=== PATIENT | female | born 1985 | race Caucasian/White ===

== ENCOUNTER 2017-05-28 18:38 | Emergency (ER) | payer OTHER ==
--- NOTE | 2017-05-28 20:14 | UC ---
Respiratory Complaint HPI - HPI Summary HPI Summary: 32 YEAR OLD FEMALE PRESENTS WITH COMPLAINS OF SEVERE COUGH. - History of Current Complaint Stated Complaint: COUGH Time Seen by Provider: 05/28/17 20:13 Hx Obtained From: Patient Hx Last Menstrual Period: 09/14/14 Onset/Duration: Sudden Onset Severity Initially: Moderate Severity Currently: Moderate - Allergies/Home Medications Allergies/Adverse Reactions: Allergies Allergy/AdvReac Type Severity Reaction Status Date / Time No Known Allergies Allergy Verified 05/28/17 20:07 Home Medications: Home Medications Cholecalciferol [D 1000] 1,000 unit PO DAILY 05/28/17 [History Confirmed ] Hydroxychloroquine TAB* [Plaquenil TAB*] 100 mg PO BID 05/28/17 [History Confirmed 05/28/17] Ranitidine TAB (NF) [Zantac TAB (NF)] 150 mg PO BID 05/28/17 [History Confirmed 05/28/17] predniSONE TAB* [Deltasone TAB*] 5 mg PO DAILY 05/28/17 [History Confirmed 05/28] PMH/Surg Hx/FS Hx/Imm Hx Previously Healthy: Yes - Surgical History Surgical History: Yes Surgery Procedure, Year, and Place: C-Sections, 2011 2012 - Social History Alcohol Use: "four times a week ... 2-3 drinks" Substance Use Type: None Smoking Status (MU): Never Smoked Tobacco - Immunization History Most Recent Influenza Vaccination: Not the season Review of Systems Constitutional: Negative Skin: Negative Eyes: Negative ENT: Nasal Discharge, Sinus Congestion, Sinus Pain/Tenderness Respiratory: Shortness Of Breath, Cough Cardiovascular: Negative Gastrointestinal: Negative Genitourinary: Negative Motor: Negative Neurovascular: Negative Musculoskeletal: Negative Neurological: Negative Psychological: Negative All Other Systems Reviewed And Are Negative: Yes Physical Exam Triage Information Reviewed: Yes Vital Signs Reviewed: Yes Eye Exam: Normal ENT: Positive: Pharyngeal erythema, Nasal congestion, Nasal drainage Dental Exam: Normal Neck exam: Normal Neck: Positive: 1 Respiratory: Positive: Rhonchi, Wheezing Cardiovascular Exam: Normal Abdominal Exam: Normal Musculoskeletal Exam: Normal Neurological Exam: Normal Psychological Exam: Normal Skin Exam: Normal Respiratory Course/Dx - Differential Dx/Diagnosis Provider Diagnoses: BRONCHITIS Discharge - Discharge Plan Condition: Stable Disposition: HOME Prescriptions: Albuterol HFA INHALER* [Ventolin HFA Inhaler*] 1 puff INH Q6H PRN #1 mdi PRN Reason: Wheezing Azithromyxin BERT (NF) [Z-Bert (Zithromax) 250 mg tabs #6] 2 tab PO .TODAY, THEN 1 DAILY #6 tab Guaifenesin-Codeine [Cheratussin AC] 1 teasp PO Q8H PRN #120 ml MDD 15 ml PRN Reason: Cough Methylprednisolone [Medrol Dosepak 4 MG*] 4 mg PO .SEE BERT INSTRUCTION #21 tab Patient Education Materials: Acute Cough (ED) Referrals: Tara Song MD [Primary Care Provider] -
[2017-05-28 20:15] VITALS: BP 122/82
== END 2017-05-28 20:32 | disposition home or self-care (01) ==
LOC: UCCORT 18:38
DX: J40 Bronchitis, not specified as acute or chronic (principal)
CPT/HCPCS: 99212; G0463

== ENCOUNTER 2017-09-23 17:53 | Emergency (ER) | payer OTHER ==
--- OUTSIDE RECORDS SUMMARY | 2017-09-23 19:05 | XMS REPORT ---
:1985 Author Name sound, Arden Reed Care Team Providers Name Role Phone sound, ultra Unavailable Unavailable PROBLEMS Type Condition ICD9-CM [id number] Onset Condition SNOMED Code Code Code Dates Status Problem Family history of Z80.3 Active 510107020 malignant neoplasm of breast Problem Anal spasm K59.4 Active 34364657 Problem Body mass index Z68.41 Active 233531458 (BMI) 40.0-44.9, adult Problem Left lower R10.32 Active 286283101 quadrant pain Problem Primary N94.4 Active 54600929 dysmenorrhea Problem Dysmenorrhea, N94.6 Active 811871451 unspecified Problem Indeterminate K52.3 Active 664864965 colitis Problem Abnormal uterine N93.9 Active [id number] and vaginal bleeding, unspecified ALLERGIES No Information ENCOUNTERS Encounter Location Date Diagnosis [facility] Sep, [place]BG[place] [id number] [facility] Aug, Abnormal uterine and OBGYN [facility] vaginal bleeding, [place], [place] [id number] unspecified N93.9 [facility] Aug, Other specified abnormal OBGYN [facility] uterine and vaginal [place], [place] [id number] bleeding N93.8 ; Body mass index (BMI) 40.0-44.9, adult Z68.41 and Left lower quadrant pain R10.32 [facility] Aug, Abnormal uterine and OBG[facility] vaginal bleeding, [place], [place] [id number] unspecified N93.9 [facility] Aug, Other specified abnormal OBGYN [facility] uterine and vaginal [place], [place] [id number] bleeding N93.8 ; Body mass index (BMI) 40.0-44.9, adult Z68.41 ; Left lower quadrant pain R10.32 and Indeterminate colitis K52.3 [facility] [address] Mar, OBGYN [place] [id number] [facility] Mar, Abnormal uterine and OBGYN [facility] vaginal bleeding, [place], [place] [id number] unspecified N93.9 ; Primary dysmenorrhea N94.4 and Anal spasm K59.4 [facility] Nov, [place]BGYN [place] [id number] [facility] Nov, Abnormal uterine and OBGYN [facility] vaginal bleeding, [place], [place] [id number] unspecified N93.9 ; Primary dysmenorrhea N94.4 and Anal spasm K59.4 [facility] October, [place]BGYN [place] [id number] [facility] October, [place]BGYN [place] [id number] [facility] Aug, [place]BG[place] [id number] [facility] Aug, [facility]94.4 [facility] ; Excessive and frequent [place], [place] [id number] menstruation with regular cycle N92.0 ; Irregular menstruation, unspecified N92.6 and Anal spasm K59.4 [facility] Aug, [place]BGYN [place] [id number] [facility] Aug, [place]BGYN [place] [id number] [facility] Jul, [place]BGYN [place] [id number] [facility] [address] [facility], Jul, [place] [id number] [facility] Jul, Excessive and frequent [facility] menstruation with regular [place], [place] [id number] cycle N92.0 [facility] Jul, [place] [id number] [facility] [address] [facility] Jul, Primary dysmenorrhea N94.[address] [place], ; Excessive and frequent [place] [id number] menstruation with regular cycle N92.0 ; Irregular menstruation, unspecified N92.6 and Anal spasm K59.4 [facility] Jul, [place]BG[place] [id number] [facility] Jul, [place] [id number] [facility] Jul, [place]BG[place] [id number] [facility] Jul, Excessive and frequent [facility] menstruation with regular [place] [id number] cycle N92.0 and Acute vaginitis N76.0 [facility] Jul, Other specified abnormal [facility] [place] [place] [id number] bleeding N93.8 and Dysmenorrhea, unspecified N94.6 [facility] Jul, Other specified [facility] [place] [place] [id number] bleeding N93.8 [facility] Jul, [place]BG[place] [id number] [facility] Jul, Other specified abnormal [facility] [place] [id number] bleeding N93.8 ; Anal spasm K59.4 ; Dysmenorrhea, unspecified N94.6 ; Dyspareunia N94.1 and Generalized abdominal pain R10.84 [facility] Jul, [place], [place] [id number] [facility] May, [place], [place] [id number] [facility] May, [place], [place] [id number] [facility] May, Other specified conditions [facility] associated with female [place], [place] [id number] genital organs and menstrual cycle N94.89 ; Gastrointestinal hemorrhage, unspecified K92.2 ; Generalized abdominal pain R10.84 ; Family history of malignant neoplasm of breast Z80.3 and Anal spasm K59.4 [facility] May, [place], [place] [id number] [facility] [address] [facility], May, [facility] [id number] [facility] May, [place] [id number] [facility] May, [place] [id number] [facility] May, [place] [id number] [facility] May, [place] [id number] [facility] May, [place] [id number] [facility] May, [place] [id number] [facility] May, PELVIC PAIN 625.9 and [facility] Levator syndrome 564.6 [place], [place] [id number] IMMUNIZATIONS No Known Immunizations SOCIAL HISTORY Never Assessed REASON FOR REFERRAL FUNCTIONAL STATUS PLAN OF CARE VITAL SIGNS MEDICATIONS Unknown Medications PROCEDURES Procedure Date Ordered Result Body Site URINE TEST September 18, 2017 CATHETER FOR HYSTEROGRAPHY September 18, 2017 ECHO EXAM, UTERUS September 18, 2017 TRANSVAGINAL US, NON-OB September 18, 2017 3D rendering requiring imaging post processing September 18, 2017 RESULTS Name Result Date Reference Range URINE TEST Hysterosonogram REASON FOR VISIT Hystero MEDICAL (GENERAL) HISTORY Type Description Date Medical History possible GERD Medical History Lupus Medical History Anxiety Medical History BRCA negative Surgical History c- section x2 Surgical History laparoscopy - endometriosis? 02/12 Surgical History removed milk ducts from RT breast 07/2014 Surgical History Hysteroscopy/D&C: EM polyp; SM fibroid 07-27-15 Hospitalization History Angioedema from Alprazolam (Xanax) 07-29-15
--- OUTSIDE RECORDS SUMMARY | 2017-09-23 19:05 | XMS REPORT ---
:1985 Author Organization [facility] Address [address] [place] [address] Care Team Providers Name Role Phone Arielle Curran Unavailable Unavailable PROBLEMS Type Condition ICD9-CM [id number] Onset Condition SNOMED Code Code Code Dates Status Problem Family history of Z80.3 Active 035502327 malignant neoplasm of breast Problem Anal spasm K59.4 Active 17257255 Problem Body mass index Z68.41 Active 244951900 (BMI) 40.0-44.9, adult Problem Left lower R10.32 Active 349595932 quadrant pain Problem Primary N94.4 Active 16322595 dysmenorrhea Problem Dysmenorrhea, N94.6 Active 748523843 unspecified Problem Indeterminate K52.3 Active 040745425 colitis Problem Abnormal uterine N93.9 Active 32492312479910 and vaginal bleeding, unspecified ALLERGIES Substance Reaction Event Type Date Status alprazolam angioedema Drug Allergy Aug, Active ENCOUNTERS Encounter Location Date Diagnosis [facility] Sep, O[place]YN [place], [place] [id number] [facility] Aug, Abnormal uterine and OBGYN [facility] vaginal bleeding, [place], [place] [id number] unspecified N93.9 [facility] 103 Aug, Other specified abnormal OBGYN [facility] uterine and vaginal [place], [place] [id number] bleeding N93.8 ; Body mass index (BMI) 40.0-44.9, adult Z68.41 and Left lower quadrant pain R10.32 [facility] Aug, Abnormal uterine and OBGYN [facility] vaginal bleeding, [place], [place] [id number] unspecified N93.9 [facility] Aug, Other specified abnormal OBGYN [facility] uterine and vaginal [place], [place] [id number] bleeding N93.8 ; Body mass index (BMI) 40.0-44.9, adult Z68.41 ; Left lower quadrant pain R10.32 and Indeterminate colitis K52.3 [facility] Mar, [place], [place] [id number] [facility] Mar, Abnormal uterine and [facility] vaginal bleeding, [place], [place] [id number] unspecified N93.9 ; Primary dysmenorrhea N94.4 and Anal spasm K59.4 [facility] Nov, [place] [id number] [facility] Nov, Abnormal uterine and [facility] vaginal bleeding, [place], [place] [id number] unspecified N93.9 ; Primary dysmenorrhea N94.4 and Anal spasm K59.4 [facility] [address] October, [place] [id number] [facility] October, [place] [id number] [facility] Aug, [place] [id number] [facility] Aug, Primary dysmenorrhea N94.4 [facility] ; Excessive and frequent [place], [place] [id number] menstruation with regular cycle N92.0 ; Irregular menstruation, unspecified N92.6 and Anal spasm K59.4 [facility] Aug, [place], [place] [id number] [facility] Aug, [place] [id number] [facility] Jul, [place], [place] [id number] [facility] [address] [place], Jul, [place] [id number] [facility] Jul, [facility]cessive and [facility]ation with regular [place] [address] cycle N92.0 [facility] Jul, [place] [id number] [facility] Jul, Primary dysmenorrhea N94.[address] [place], ; Excessive and frequent [place] [id number] menstruation with regular cycle N92.0 ; Irregular menstruation, unspecified N92.6 and Anal spasm K59.4 [facility] Jul, [place] [id number] [facility] Jul, [place] [id number] [facility] Jul, [place] [id number] [facility] Jul, Excessive and frequent [facility] menstruation with regular [place], [place] [id number] cycle N92.0 and Acute vaginitis N76.0 [facility] Jul, Other specified abnormal OBGYN [facility] uterine and vaginal [place], [place] [id number] bleeding N93.8 and Dysmenorrhea, unspecified N94.6 [facility] Jul, Other specified abnormal [facility] and vaginal [place] [id number] bleeding N93.8 [facility] Jul, [place] [id number] [facility] Jul, Other specified abnormal [facility] and vaginal [place] [id number] bleeding N93.8 ; Anal spasm K59.4 ; Dysmenorrhea, unspecified N94.6 ; Dyspareunia N94.1 and Generalized abdominal pain R10.84 [facility] Jul, [place] [id number] [facility] [address] May, [place] [id number] [facility] May, [place] [id number] [facility] May, Other specified conditions [facility] associated with female [place] [id number] genital organs and menstrual cycle N94.89 ; Gastrointestinal hemorrhage, unspecified K92.2 ; Generalized abdominal pain R10.84 ; Family history of malignant neoplasm of breast Z80.3 and Anal spasm K59.4 [facility] May, [place] [id number] [facility] [address] [place], May, [facility] [id number] [facility] [address] May, [place] [id number] [facility] 103 May[place] [id number] [facility] [address] May, [place] [id number] [facility] 103 May[place] [id number] [facility] [address] May, [place] [id number] [facility] [address] May, [place] [id number] [facility] May, PELVIC PAIN 625.9 and [facility] Levator syndrome 564.6 [place], [place] [id number] IMMUNIZATIONS No Known Immunizations SOCIAL HISTORY Never Assessed REASON FOR REFERRAL FUNCTIONAL STATUS PLAN OF CARE Activity Details Follow Up As scheduled Reason: VITAL SIGNS MEDICATIONS Medication Instructions Dosage Frequency Start Date End Date Duration Status Cytotec 200 mcg orally 1 tab at 1 tab(s) Active dinner night before procedure, 1 tab at bedtime night before procedure, 1 tab at 6 AM day of procedure PROCEDURES No Known procedures RESULTS No Results REASON FOR VISIT Hystero MEDICAL (GENERAL) HISTORY [...]
--- OUTSIDE RECORDS SUMMARY | 2017-09-23 19:05 | XMS REPORT ---
:1985 Author Organization [facility] Address [address] [place] [address] Care Team Providers Name Role Phone Megan Weaver Unavailable Unavailable PROBLEMS Type Condition ICD9-CM [id number] Onset Condition SNOMED Code Code Code Dates Status Problem Family history of Z80.3 Active 512933451 malignant neoplasm of breast Problem Anal spasm K59.4 Active 36715656 Problem Body mass index Z68.41 Active 903229275 (BMI) 40.0-44.9, adult Problem Left lower R10.32 Active 578089987 quadrant pain Problem Primary N94.4 Active 64862163 dysmenorrhea Problem Dysmenorrhea, N94.6 Active 582706899 unspecified Problem Indeterminate K52.3 Active 107085191 colitis Problem Abnormal uterine N93.9 Active [id number] and vaginal bleeding, unspecified ALLERGIES Substance Reaction Event Type Date Status alprazolam angioedema Drug Allergy Aug, Active ENCOUNTERS Encounter Location Date Diagnosis [facility] [address] Sep, [place]YN [place] [id number] [facility] [address] Aug, Abnormal uterine and OBGYN [facility] vaginal bleeding, [place], [place] [id number] unspecified N93.9 [facility] 103 Aug, Other specified abnormal OBGYN [facility] uterine and vaginal [place], [place] [id number] bleeding N93.8 ; Body mass index (BMI) 40.0-44.9, adult Z68.41 and Left lower quadrant pain R10.32 [facility] 103 Aug, Abnormal uterine and OBGYN [facility] vaginal bleeding, [place], [place] [id number] unspecified N93.9 [facility] 103 Aug, Other specified abnormal OBGYN [facility] uterine and vaginal [place], [place] [id number] bleeding N93.8 ; Body mass index (BMI) 40.0-44.9, adult Z68.41 ; Left lower quadrant pain R10.32 and Indeterminate colitis K52.3 [facility] [address] Mar, [place], [place] [id number] [facility] 103 Mar, Abnormal uterine and [facility] vaginal bleeding, [place], [place] [id number] unspecified N93.9 ; Primary dysmenorrhea N94.4 and Anal spasm K59.4 [facility] 103 Nov, [place], [place] [id number] [facility] 103 Nov, Abnormal uterine and [facility] vaginal bleeding, [place], [place] [id number] unspecified N93.9 ; Primary dysmenorrhea N94.4 and Anal spasm K59.4 [facility] 103 October, [place], [place] [id number] [facility] 103 October, [place], [place] [id number] [facility] 103 Aug, [place], [place] [id number] [facility] 103 Aug, Primary dysmenorrhea N94.4 [facility] ; Excessive and frequent [place], [place] [id number] menstruation with regular cycle N92.0 ; Irregular menstruation, unspecified N92.6 and Anal spasm K59.4 [facility] 103 Aug, [place], [place] [id number] [facility] 103 Aug, [place], [place] [id number] [facility] 103 Jul, [place], [place] [id number] [facility] [address] [place], [facility] [place] [id number] [facility] 103 Jul, [facility] with regular [place], [place] [id number] cycle N92.0 [facility] 103 Jul, [place] [id number] [facility] [address] [facility], Primary dysmenorrhea N94.4 [facility] [address] [place], ; Excessive and frequent [place] [id number] menstruation with regular cycle N92.0 ; Irregular menstruation, unspecified N92.6 and Anal spasm K59.4 [facility] 103 Jul, [place] [id number] [facility] 103 Jul, [place] [id number] [facility] 103 Jul, [place] [id number] [facility] 103 Jul, [facility] and [facility]ation with regular [place], [place] [id number] cycle N92.0 and Acute vaginitis N76.0 [facility] 103 Jul, Other specified abnormal OBGYN [facility] uterine and vaginal [place], [place] [id number] bleeding N93.8 and Dysmenorrhea, unspecified N94.6 [facility] 103 Jul, Other specified abnormal [facility] uterine and [place] [id number] bleeding N93.8 [facility] 103 Jul, [place] [id number] [facility] 103 Jul, Other specified [facility] and vaginal [place] [id number] bleeding N93.8 ; Anal spasm K59.4 ; Dysmenorrhea, unspecified N94.6 ; Dyspareunia N94.1 and Generalized abdominal pain R10.84 [facility] 103 Jul, [place] [id number] [facility] 103 May, [place] [id number] [facility] 103 May, [place] [id number] [facility] 103 May, Other specified conditions [facility] associated with female [place], [place] [id number] genital organs and menstrual cycle N94.89 ; Gastrointestinal hemorrhage, unspecified K92.2 ; Generalized abdominal pain R10.84 ; Family history of malignant neoplasm of breast Z80.3 and Anal spasm K59.4 [facility] [address] May, [place] [id number] [facility] [address] [place], May, Medical [facility] [id number] [facility] [address] May, [place] [id number] [facility] [address] May, [place] [id number] [facility] [address] May, [place] [id number] [facility] 103 May, [place] [id number] [facility] 103 May, [place] [id number] [facility] 103 May, [place] [id number] [facility] 103 May, PELVIC PAIN 625.9 and [facility] Levator syndrome 564.6 [place], [place] [id number] IMMUNIZATIONS No Known Immunizations SOCIAL HISTORY Never Assessed REASON FOR REFERRAL FUNCTIONAL STATUS PLAN OF CARE Activity Details Follow Up As scheduled Reason: Pending Test endometrial biopsy VITAL SIGNS Height 64 in 2017-09-19 Weight 263 lbs 2017-09-19 BMI 45.14 kg/m2 2017-09-19 Blood pressure systolic 128 mm Hg 2017-09-19 Blood pressure diastolic 70 mm Hg 2017-09-19 MEDICATIONS Medication Instructions Dosage Frequency Start End Duration Status Date Date Vitamin D2 50,000 orally q week 1 cap(s) Active intl units prednisone 5 mg orally once a 1 tab(s) 24h Active day Cytotec 200 mcg orally 1 tab at 1 tab(s) Active dinner night before procedure, 1 tab at bedtime night before procedure, 1 tab at 6 AM day of procedure alprazolam 0.5 mg orally 3 times 1 tab(s) 8h Active a day Hydrochloroquinine 1 atb 12h Active 200 mg ranitidine 150 mg orally 2 times 1 cap(s) 12h Active a day PROCEDURES Procedure Date Ordered Result Body Site BIOPSY OF UTERUS LINING September 19, 2017 RESULTS No Results REASON FOR VISIT EMB MEDICAL (GENERAL) HISTORY Type Description Date Medical History possible GERD Medical History Lupus Medical History Anxiety Medical History BRCA negative Surgical History c- section x2 Surgical History laparoscopy - endometriosis? 02/12 Surgical History removed milk ducts from RT breast 07/2014 Surgical History Hysteroscopy/D&C: EM polyp; SM fibroid 07-27-15 Hospitalization History Angioedema from Alprazolam (Xanax) 07-29-15
[2017-09-23 19:14] VITALS: BP 115/65
--- NOTE | 2017-09-23 19:45 | UC ---
UC General HPI - HPI Summary HPI Summary: pt c/o a sore throat, headache and R ear pain. stomach feels off as well. no fever, v/d. son tested + for strep throat and is currently being tx. pt has Lupus and is on steroids. onset yesterday. - History of Current Complaint Hx Obtained From: Patient Hx Last Menstrual Period: CURRENT Onset/Duration: Gradual Onset Timing: Constant Pain Intensity: 4 Associated Signs & Symptoms: Positive: Headache <Justyna Ruiz - Last Filed: 09/23/17 19:40> <Fabby Mccray - Last Filed: 09/23/17 20:58> - History of Current Complaint Chief Complaint: UCGeneralIllness Stated Complaint: SORE THROAT, HEADACHE Time Seen by Provider: 09/23/17 19:29 - Allergy/Home Medications Allergies/Adverse Reactions: Allergies Allergy/AdvReac Type Severity Reaction Status Date / Time No Known Allergies Allergy Verified 09/23/17 19:06 PMH/Surg Hx/FS Hx/Imm Hx - Additional Past Medical History Additional PMH: Lupus GI/ History: Gastroesophageal Reflux - Surgical History Surgical History: Yes Surgery Procedure, Year, and Place: C-Sections, 2011 2012 - Social History Occupation: Employed Full-time Lives: With Family Alcohol Use: Occasionally Substance Use Type: None Smoking Status (MU): Never Smoked Tobacco - Immunization History Most Recent Influenza Vaccination: Not the season Vaccination Up to Date: Yes <Justyna Ruiz - Last Filed: 09/23/17 19:40> Review of Systems ENT: Sore Throat, Ear Ache Gastrointestinal: Nausea Neurological: Headache Is Patient Immunocompromised?: Yes All Other Systems Reviewed And Are Negative: Yes <Justyna Ruiz - Last Filed: 09/23/17 19:40> Physical Exam Triage Information Reviewed: Yes Appearance: Well-Appearing Vital Signs: Initial Vital Signs Temp 96.2 F 09/23/17 19:08 Pulse 84 09/23/17 19:08 Resp 16 09/23/17 19:08 BP 115/65 09/23/17 19:08 Pulse Ox 100 09/23/17 19:08 Vital Signs Reviewed: Yes Eye Exam: Normal ENT: Positive: Pharyngeal erythema, TMs normal, Uvula midline. Negative: Nasal congestion, Nasal drainage, Tonsillar swelling, Tonsillar exudate, Trismus, Muffled voice, Hoarse voice Neck: Positive: Supple, Nontender, Enlarged Nodes @ - mild peritonsilar Respiratory: Positive: Lungs clear, Normal breath sounds Cardiovascular: Positive: RRR, No Murmur, Pulses Normal Abdomen Description: Positive: Nontender, No Organomegaly, Soft Bowel Sounds: Positive: Present Musculoskeletal: Positive: ROM Intact Neurological: Positive: Alert Psychological: Positive: Age Appropriate Behavior Skin Exam: Normal <Justyna Ruiz - Last Filed: 09/23/17 19:40> Vital Signs: Initial Vital Signs Temp 96.2 F 09/23/17 19:08 Pulse 84 09/23/17 19:08 Resp 16 09/23/17 19:08 BP 115/65 09/23/17 19:08 Pulse Ox 100 09/23/17 19:08 <Fabby Mccray - Last Filed: 09/23/17 20:58> Diagnostics - Laboratory Diagnostic Studies Completed/Ordered: rapid strep=neg <Justyna uRiz - Last Filed: 09/23/17 19:40> Course/Dx - Course Course Of Treatment: rapid strep=neg; however, pharyngitis on exam, steroid dependent and son has strep thus will tx presumptively. - Differential Dx - Multi-Symptom Provider Diagnoses: Pharyngitis <Justyna Ruiz - Last Filed: 09/23/17 19:40> Discharge - Sign-Out/Discharge Documenting (check all that apply): Discharge - Billing Disposition and Condition Condition: STABLE Disposition: HOME <Justyna Ruiz - Last Filed: 09/23/17 19:40> - Billing Disposition and Condition Condition: STABLE Disposition: HOME <Fabby Mccray - Last Filed: 09/23/17 20:58> - Discharge Plan Condition: Stable Disposition: HOME Prescriptions: Penicillin VK 500 MG TAB(NF) [Penicillin VK 500 mg Tab] 500 mg PO BID 10 Days # 20 tab Patient Education Materials: Pharyngitis (ED) Referrals: Swetha Benitez MD [Primary Care Provider] - 5 Days Attestation Statement User Type: Provider - I was available for consult. This patient was seen by the advanced practice provider. The patient was not presented to, seen by, or examined by me.-Ljj <Fabby Mccray - Last Filed: 09/23/17 20:58>
== END 2017-09-23 19:59 | disposition home or self-care (01) ==
LOC: UCCORT 17:53
DX: J02.9 Acute pharyngitis, unspecified (principal); Z20.89 Contact with and (suspected) exposure to other communicable diseases
CPT/HCPCS: 87651; 99212; G0463

== ENCOUNTER 2017-11-16 09:16 | Emergency (ER) | payer OTHER ==
--- OUTSIDE RECORDS SUMMARY | 2017-11-16 09:28 | XMS REPORT ---
:1985 External Reference #:[id number] Author Organization [facility] Address [address], [address] [place] [address] Phone [phone] Care Team Providers Name Role Phone Tara Song MD Care Team Information Safety Investigator Unavailable Tara Song MD Primary Care Physician Unavailable Payers Type Date Identification Numbers Payment Provider Subscriber Commercial Policy Number: [id number] [facility] Rosie Villatoro PayID: [id number] [address] [place] [address] Problems Description No Information Family History Date Family Member(s) Problem(s) Comments Father Heart Disease Father Prostate Cancer Mother Heart Disease Children 2 Siblings 2 Social History Type Date Description 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 Alprazolam 0000 Active Tablets 0.5mg as Dill, Swetha, /0000 needed Hydroxychloroquine Active Tablets 200mg twice a Johns, Sulfate / day Emeka ESCALONA Prednisone 00 Active Tablets 5mg once Johns, /0000 daily Emeka ESCALONA Vitamin D2 Active Tablets 2000Unit 1 by Unknown /0000 mouth every day Sulfamethoxazole/Tri 06/22 Hx Tablets 800-160mg 14tab 1 by N39.0 Erickson methoprim s mouth H. - twice a Moheimani, 10/17 day M.D. Naproxen Hx Tablets 500mg 1 by Unknown /0000 mouth - twice a with food Miralax Hx Packet 3350NF 17g by Unknown /0000 mouth - twice a 10/17 day needed constip ation. Vital Signs Date Vital Result Comment 10/17/2017 BP Systolic 128 mmHg BP Diastolic 88 mmHg Height 64.50 inches 5'4.50" Weight 236.00 lb BMI (Body Mass Index) 39.9 kg/m2 BSA (Body Surface Area) 2.11 m2 Ten Sleep body weight in kilograms 56 06/09/2015 BP Systolic Sitting Left Arm 100 mmHg BP Diastolic Sitting Left Arm 65 mmHg Heart Rate 95 /min Height 64.50 inches 5'4.50" Weight 233.00 lb BMI (Body Mass Index) 39.4 kg/m2 BSA (Body Surface Area) 2.10 m2 Results Test Date Test Result H/L Range Note Laboratory test finding 07/12/2015 Gastric Biopsy/Polyp See Note 1 Xray 07/11/2015 GI Endscopic Ultrasound neg Xray 07/11/2015 CT, Pelvis, W/ & W/O - Contrast MRI, Pelvis, W/ & W/O Contrast - CBS W/Automated Diff 07/10/2015 White Blood Count 6.9 K/uL 3.1-10.7 Red Blood Count 4.71 M/uL 3.90-5.40 Hemoglobin 14.8 gm/dL 11.6-15.8 Hematocrit 44.2 % 36.0-46.1 Mean Cell Volume 93.8 fl 80.9-99.0 Mean Corpuscular HGB 31.4 pg 25.9-32.7 Mean Corpuscular HGB Conc 33.5 g/dL 30.8-34.3 Platelet Count 262 K/uL 155-360 Red Cell Distri Width SD 43.2 fl 3-47 Red Cell Distri Width %CV 12.9 % 11.7-14.4 Mean Platelet Volume 10.0 fL 8.9-12.4 Neut% 60.8 % 40.4-72.8 Lymph % 29.8 % 17.0-46.1 Baxter % 8.4 % 4.3-13.2 Eo% 0.4 % 0.0-6.6 Bas% 0.6 % 0.0-1.1 Neut# 4.20 K/uL 1.8-7.0 Lymph # 2.06 K/uL 1.8-7.0 Baxter # 0.58 K/uL 0.3-0.9 Eos # 0.03 K/uL 0.0-0.5 Baso # 0.04 K/uL 0.0-0.1 Urine Screen 07/10/2015 Urine Color YELLOW Yellow Urine Clarity CLEAR Clear Urine Glucose - Dipstick NEGATIVE mg/dL Negative Urine Bilirubin - Dipstick NEGATIVE Negative Urine Ketone NEGATIVE mg/dL Negative Urine Specific Callaway 1.015 1.010-1.030 Urine Blood NEGATIVE Negative Urine PH 5.5 Low 6.5-7.5 Urine Protein - Dipstick NEGATIVE mg/dL Negative Urine Urobilinogen - Dipstick 0.2 E.U./dL 0.2-1.0 Urine Nitrite - Dipstick NEGATIVE Negative Urine Leuk Esterase NEGATIVE Negative Comprehensive Metabolic Panel 07/10/2015 Glucose 97 mg/dL 74-106 BUN 14 mg/dL 7-18 Creatinine 0.9 mg/dL 0.6-1.3 Glom Filtration Rate, Estimate >60 mL/min >60 If >60 mL/min >60 2 BUN/Creat 15.5 ratio Sodium 139 mmol/L 136-145 Potassium 4.2 mmol/L 3.5-5.1 Chloride 106 mmol/L 98-107 Carbon Dioxide 26 mmol/L 21-32 Anion Gap 7 mEq/L Low 8-16 Calcium 8.9 mg/dL 8.5-10.1 Total Protein 8.7 g/dL High 6.4-8.2 Albumin 4.1 g/dL 3.4-5.0 Globulin 4.6 g/dL High 1.9-4.3 Alb/Glob 0.9 ratio Bilirubin,Total 0.3 mg/dL 0.2-1.0 Sgot/Ast 21 U/L 15-37 SGPT/Alt 37 U/L 12-78 Alkaline Phosphatase 89 U/L 45-117 Laboratory test finding 07/10/2015 HCG,Serum (Qualitative) NEGATIVE ( Negative) CBC W/Automated Diff 07/10/2015 White Blood Count 6.9 K/uL 3.1-10.7 Red Blood Count 4.41 M/uL 3.90-5.40 Hemoglobin 13.8 gm/dL 11.6-15.8 Hematocrit 41.4 % 36.0-46.1 Mean Cell Volume 93.9 fl 80.9-99.0 Mean Corpuscular HGB 31.3 pg 25.9-32.7 Mean Corpuscular HGB Conc 33.3 g/dL 30.8-34.3 Platelet Count 287 K/uL 155-360 Red Cell Distri Width SD 43.0 fl 3-47 Red Cell Distri Width %CV 12.9 % 11.7-14.4 Mean Platelet Volume 9.8 fL 8.9-12.4 Neut% 71.7 % 40.4-72.8 Lymph % 20.6 % 17.0-46.1 Baxter % 6.5 % 4.3-13.2 Eo% 0.9 % 0.0-6.6 Bas% 0.3 % 0.0-1.1 Neut# 4.94 K/uL 1.8-7.0 Lymph # 1.42 K/uL Low 1.8-7.0 Baxter # 0.45 K/uL 0.3-0.9 Eos # 0.06 K/uL 0.0-0.5 Baso # 0.02 K/uL 0.0-0.1 Protime 07/10/2015 Protime 12.6 seconds 12.0-14.4 Inr 0.9 0.9-1.1 3 Laboratory test finding 07/10/2015 Act Partial Thrombo Time 30.2 seconds 23.4-35.0 4 Laboratory test finding 07/10/2015 Prothrombin Time 12.6 12.0-14.4 Laboratory test finding 07/08/2015 Free Thyroxine 1.00 0.76-1.46 Prolactin 8.3 Thyroid Stimulating Hormone (TSH) 1.92 0.36-3.74 Laboratory test finding 07/05/2015 Urine Amorphous Sediment Small Negative CBC W/Automated Diff 06/23/2015 White Blood Count 7.2 K/uL 3.1-10.7 Red Blood Count 4.16 M/uL 3.90-5.40 Hemoglobin 13.2 gm/dL 11.6-15.8 Hematocrit 39.9 % 36.0-46.1 Mean Cell Volume 95.9 fl 80.9-99.0 Mean Corpuscular HGB 31.7 pg 25.9-32.7 Mean Corpuscular HGB Conc 33.1 g/dL 30.8-34.3 Platelet Count 237 K/uL 155-360 Red Cell Distri Width SD 43.0 fl 3-47 Red Cell Distri Width %CV 12.7 % 11.7-14.4 Mean Platelet Volume 10.1 fL 8.9-12.4 Neut% 59.9 % 40.4-72.8 Lymph % 30.7 % 17.0-46.1 Baxter % 7.8 % 4.3-13.2 Eo% 1.3 % 0.0-6.6 Bas% 0.3 % 0.0-1.1 Neut# 4.30 K/uL 1.0-7.0 Lymph # 2.20 K/uL 1.8-7.0 Baxter # 0.56 K/uL 0.3-0.9 Eos # 0.09 K/uL 0.0-0.5 Baso # 0.02 K/uL 0.0-0.1 Laboratory test finding 06/23/2015 Basophils # (Auto) 0.02 0.0-0.1 Basophils (%) (Auto) 0.3 0.0-1.1 Eosinophils # (Auto) 0.09 0.0-0.5 Eosinophils (%) (Auto) 1.3 0.0-6.6 Lymphocytes # (Auto) 2.20 1.8-7.0 Lymphocytes (%) (Auto) 30.7 17.0-46.1 Monocytes # (Auto) 0.56 0.3-0.9 Monocytes (%) (Auto) 7.8 4.3-13.2 Neutrophils # (Auto) 4.30 1.0-7.0 Neutrophils (%) (Auto) 59.9 40.4-72.8 RDW Coefficient of Variation 12.7 11.7-14.4 Red Cell Distribution Width 43.0 3-47 Urinalysis With Microscopic 06/23/2015 Urine Color YELLOW Yellow Urine Clarity SL CLOUDY Clear Urine Glucose - Dipstick NEGATIVE mg/dL Negative Urine Bilirubin - Dipstick NEGATIVE Negative Urine Ketone NEGATIVE mg/dL Negative Urine Specific Callaway 1.010 1.010-1.030 Urine Blood MODERATE High Negative Urine PH 6.0 Low 6.5-7.5 Urine Protein - Dipstick NEGATIVE mg/dL Negative Urine Urobilinogen - Dipstick 0.2 E.U./dL 0.2-1.0 Urine Nitrite - Dipstick NEGATIVE Negative Urine Leuk Esterase LARGE High Negative Urine RBC 2-5 rbc/hpf 0-2 Urine WBC 30-50 wbc/hpf High 0-7 Urine Epithelial Cells VERY FEW NONESEEN/lpf Urine Bacteria FEW NONESEEN Laboratory test finding 06/23/2015 Ua RFX Micro + Culture II See Note 5 Urine Culture See Note 6 Laboratory test finding 06/23/2015 Urine Bilirubin Negative Negative Urine Glucose (Ua) Negative Negative Urine Ketones Negative Negative Urine Leukocyte Esterase Large High Negative Urine Nitrite Negative Negative Urine Protein Negative Negative Urine Urobilinogen 0.2 0.2-1.0 Laboratory test finding 06/22/2015 Sodium Level 139 136-145 CBC W/Automated Diff 06/22/2015 White Blood Count 7.7 K/uL 3.1-10.7 Red Blood Count 4.45 M/uL 3.90-5.40 Hemoglobin 13.6 gm/dL 11.6-15.8 Hematocrit 41.4 % 36.0-46.1 Mean Cell Volume 93.0 fl 80.9-99.0 Mean Corpuscular HGB 30.6 pg 25.9-32.7 Mean Corpuscular HGB Conc 32.9 g/dL 30.8-34.3 Platelet Count 266 K/uL 155-360 Red Cell Distri Width SD 41.3 fl 3-47 Red Cell Distri Width %CV 12.5 % 11.7-14.4 Mean Platelet Volume 10.1 fL 8.9-12.4 Neut% 64.7 % 40.4-72.8 Lymph % 25.7 % 17.0-46.1 Baxter % 8.4 % 4.3-13.2 Eo% 0.9 % 0.0-6.6 Bas% 0.3 % 0.0-1.1 Neut# 4.99 K/uL 1.0-7.0 Lymph # 1.98 K/uL 1.8-7.0 Baxter # 0.65 K/uL 0.3-0.9 Eos # 0.07 K/uL 0.0-0.5 Baso # 0.02 K/uL 0.0-0.1 Laboratory test finding 06/22/2015 Lipase 126 U/L 73-393 HCG,Serum (Qualitative) NEGATIVE (Negative) Comprehensive Metabolic Panel 06/22/2015 Glucose 105 mg/dL 74-106 BUN 15 mg/dL 7-18 Creatinine 0.9 mg/dL 0.6-1.3 Glom Filtration Rate, Estimate >60 mL/min >60 If >60 mL/min >60 7 BUN/Creat 16.6 ratio Sodium 139 mmol/L 136-145 Potassium 3.7 mmol/L 3.5-5.1 Chloride 106 mmol/L 98-107 Carbon Dioxide 27 mmol/L 21-32 Anion Gap 6 mEq/L Low 8-16 Calcium 9.1 mg/dL 8.5-10.1 Total Protein 8.2 g/dL 6.4-8.2 Albumin 3.9 g/dL 3.4-5.0 Globulin 4.3 g/dL 1.9-4.3 Alb/Glob 0.9 ratio Bilirubin,Total 0.3 mg/dL 0.2-1.0 Sgot/Ast 48 U/L High 15-37 SGPT/Alt 80 U/L High 12-78 Alkaline Phosphatase 80 U/L 45-117 Laboratory test finding 06/14/2015 Urine HCG (Qualitative) NEGATIVE Negative 8 Laboratory test finding 06/14/2015 Polyp Colon And/Or Rectum See Note 9 CBC With Auto Diff 05/20/2015 Abmon 0.4 K/uL 0.1-1.0 10 Abs Basophils 0.0 K/uL 0.0-0.3 10 Abs Eosinophils 0.1 K/uL 0.0-0.5 10 Abs Lymphocytes 1.7 K/uL 0.8-5.5 10 Abs Neutrophils 3.6 K/uL 2.1-8.0 10 Basophil 0.1 % 0.0-4.0 10 Eosinophil 0.9 % 0.0-5.0 10 Hematocrit 40.3 % 36.0-47.0 10 Hemoglobin 13.3 gm/dL 12.0-16.0 10 Lymphocyte 29.0 % 16.0-52.0 10 MCH 30.7 pg 27.0-32.0 10 MCHC 33.1 g/dL 32.0-36.0 10 MCV 92.9 fL 80.0-97.0 10 Monocyte 7.7 % 2.0-10.0 10 Neutrophil 62.3 % 35.0-75.0 10 PLT Count 262 K/ul 140-400 10 RBC 4.34 M/uL 4.00-5.40 10 RDW 12.5 % 11.5-14.5 10 WBC 5.7 K/uL 4.1-11.0 10 Laboratory test finding 05/20/2015 A/G Ratio 1.3 Ratio 1.0-2.2 10 Mandy Egfr >60 >60 10 Albumin 4.4 g/dL 3.6-4.9 10 Alkaline Phosphatase 72 U/L 24-140 10 Alt 16 U/L 3-42 10 Vicki Screen Neg Neg 10 Anion Gap 12 mmol/L 6-14 10 Ast 17 U/L 8-42 10 BUN 14 mg/dL 6-26 10 CRP (C-Reactive) 0.32 mg/dL 0.00-0.75 10 Calcium 9.4 mg/dL 8.5-10.2 10 Carbon Dioxide 26 mmol/L 24-34 10 Chloride 102 mmol/L 97-109 10 Creatinine 0.8 mg/dL 0.5-1.4 10 Esr 13 mm/hr 0-20 10 Globulin 3.4 g/dL 2.0-3.5 10 Glucose 82 mg/dL 70-105 10 Non Mandy Egfr >60 >60 10, 11 Potassium 4.1 mmol/L 3.5-5.2 10 Rheumatoid Factor <10.0 Iu/ml 0.0-10.0 10 Sodium 136 mmol/L 134-142 10 Total Bilirubin 0.8 mg/dL 0.1-1.3 10 Total Protein 7.8 g/dL 6.0-8.0 10 1 OPERATION/PROCEDURE EGD DIAGNOSIS: PART 1: "SMALL BOWEL, DUODENUM, BIOPSY": - SMALL BOWEL MUCOSA WITH NORMAL VILLOUS ARCHITECTURE AND NO SIGNIFICANT PATHOLOGIC ABNORMALITY. - NO INFECTIOUS AGENTS OR PATHOLOGIC CHANGES IDENTIFIED. PART 2: "STOMACH, BIOPSIES": - GASTRIC ANTRAL MUCOSA WITH NO SIGNIFICANT PATHOLOGIC ABNORMALITY. - GASTRIC FUNDIC GLAND MUCOSA WITH FOCAL CHRONIC INFLAMMATION AND LYMPHOID AGGREGATE. - NO ACTIVE GASTRITIS OR HELICOBACTOR PYLORI-LIKE ORGANISMS ARE IDENTIFIED. DS/clf 1004 GROSS The specimen is received in formalin in two properly labeled containers with the patient's name and accession number. Part one is designated, "DUODENAL BIOPSIES". The specimen consists of multiple pieces of mullins, soft rubbery tissue with an aggregate measurement of 0.7 x 0.6 x 0.2 cm. Submitted entirely, one cassette. Part two is designated, "STOMACH BIOPSIES". The specimen consists of multiple pieces of mullins, soft rubbery tissue with an aggregate measurement of 0.6 x 0.4 x 0.2 cm. Submitted entirely, one cassette. CC/clf PRE OPERATIVE DIAGNOSIS Epigastric pain, nausea REVIEW CODE CODE: I Signed Electronically signed NEMESIO REYES MD [id number] 2 Note: Persistent reduction for 3 months or more in an eGFR <60 mL/min/1.73 m2 defines CKD. Patients with eGFR values >/=60 mL/min/1.73 m2 may also have CKD if evidence of persistent proteinuria is present. The original MDRD equation for estimated GFR is not valid for patients less than 18 years of age. Additional information may be found at www.kdoqi.org. 3 THERAPEUTIC INR RANGE: 2.0 - 3.0 DVT, Pulmonary embolus, prophylaxis against venous thrombosis or systemic embolization in high risk patients. 2.5 - 3.5 Mechanical heart valves 4 Is patient on anticoagulants? Coumadin QUERY: Anticoagulant Therapy? QUERY: Date of Last Dose: QUERY: Time of Last Dose: 5 06/23/15 [email or web address] Deleted by Reflex Group [place] 6 Organism 1 ! MIXED URETHRAL SUKHWINDER Quantity ! > 100,000 CFU/mL SPECIMEN IS A MIX OF GRAM NEGATIVE AND GRAM POSITIVE ORGANISMS. UNABLE TO DETERMINE WHICH ORGANISMS ARE FROM THE URINARY TRACT OR THE RESULT OF SKIN/VAGINAL/PERIANAL CONTAMINATION DURING COLLECTION. SUGGEST REPEAT SPECIMEN IF CLINICALLY INDICATED. 7 Note: Persistent reduction for 3 months or more in an eGFR <60 mL/min/1.73 m2 defines CKD. Patients with eGFR values >/=60 mL/min/1.73 m2 may also have CKD if evidence of persistent proteinuria is present. The original MDRD equation for estimated GFR is not valid for patients less than 18 years of age. Additional information may be found at www.kdoqi.org. 8 FIRST MORNING SPECIMENS GENERALLY CONTAIN THE HIGHEST CONCENTRATION OF HCG AND ARE RECOMMENDED FOR EARLY DETECTION OF . 9 OPERATION/PROCEDURE Colonoscopy DIAGNOSIS: PART 1: "SMALL BOWEL, BIOPSY": - BENIGN SMALL INTESTINAL MUCOSA WITH NO SIGNIFICANT PATHOLOGIC ABNORMALITIES. - NO EVIDENCE OF VILLOUS BLUNTING OR INCREASED INTRAEPITHELIAL LYMPHOCYTES. PART 2: "SMALL BOWEL, LESION, BIOPSY": - FOCALLY ERODED INTESTINAL MUCOSA WITH MILD CRYPT ARCHITECTURE DISTORTION; SEE COMMENT. EP/clf 1014 INTERPRETATION COMMENT Histologic specimens from specimen #2, show small intestinal mucosa with a focal area of eroded surface epithelium, focal surface epithelial damage, and mild crypt architecture distortion. The findings are favored to represent a resolving acute process. Clinical-pathologic correlation is recommended. GROSS The specimen is received in formalin in two properly labeled containers with the patient's name and accession number. Part one is designated, "SMALL BOWEL BIOPSY". The specimen consists of a 0.4 x 0.3 x 0.2 cm. mullins, soft rubbery tissue. Submitted entirely, one cassette. Part two is designated, "SMALL BOWEL LESION". The specimen consists of a 0.5 x 0.3 x 0.2 cm. mullins, soft rubbery tissue. Submitted entirely, one cassette. CC/clf PRE OPERATIVE DIAGNOSIS Pelvic and perineal pain REVIEW CODE CODE: I Signed Electronically signed Linda NEGRON MD 1147 10 today letter 11 Concerning GFR Guidelines for Americans: Normal function or mild renal disease, if clinically at risk: >/=60 mL/min Moderately decreased: 30-59 Severely decreased: 15-29 Renal failure: <15 Procedures Date CPT Code Description Status Comment 06/14/2015 38982 Colonoscopy With Biopsy Completed 06/14/2015 Colonoscopy Completed Document: 06/14/15 - Operative Report 07/01/2014 Mammogram Completed Encounters Type Date Location Provider CPT E/M Dx Office Visit 10/17/2017 8:45a Surgical Office [facility] Frank 04171 R19.7 Bhavesh De La Fuente R10.12 M32.9 Office Visit 06/22/2015 3:45p Surgical Office [place] [place] [address]3431 R10.2 Bhavesh N39.0 Office Visit 06/09/2015 1:30p Surgical Office [facility]on [place], 78059 R10.2 Bhavesh Plan of Care 10/17/2017 - Erickson De La Fuente M.D.R19.7 Diarrhea, unspecifiedNew Labs: Ova & Parasite ComprehensiveCeliac Disease Comp AB MtwmtpeR76.12 Left upper quadrant painM32.9 Systemic lupus erythematosus, unspecified
--- NOTE | 2017-11-16 10:20 | UC ---
UC General HPI - HPI Summary HPI Summary: pt states has hx Lupus and gets occasional angioedema. she was admited to [facility] 2 days ago and intubated for angioedema. she was discharged yesterday. today, she has a congested cough and wants to ensure this is not a "tubular pneumonia". she has had pneumonia twice after intubation for angioedema. she denies any fever, sob and wheezing. She is on Plaquenil, prednisone 20mg and GERD prevention. she has diffuse bodyaches which is a part of her illness and tx. she denies needing admission for the prior pneumonia. - History of Current Complaint Hx Obtained From: Patient Hx Last Menstrual Period: 10/29/17 Onset/Duration: Gradual Onset Pain Intensity: 8 Aggravating: nothing Alleviating: nothing Associated Signs & Symptoms: Positive: Cough. Negative: Fever, SOB <Justyna Ruiz - Last Filed: 11/16/17 11:44> <Fabby Mccray - Last Filed: 11/16/17 11:48> - History of Current Complaint Chief Complaint: UCRespiratory Stated Complaint: COUGH/SOB Time Seen by Provider: 11/16/17 09:51 - Allergy/Home Medications Allergies/Adverse Reactions: Allergies Allergy/AdvReac Type Severity Reaction Status Date / Time No Known Allergies Allergy Verified 11/16/17 09:26 PMH/Surg Hx/FS Hx/Imm Hx - Additional Past Medical History Additional PMH: Lupus - Surgical History Surgical History: Yes Surgery Procedure, Year, and Place: C-Sections, 2011 2012 - Family History Known Family History: Positive: Other - [place] - Social History Occupation: Employed Full-time Lives: With Family Alcohol Use: Occasionally Substance Use Type: None Smoking Status (MU): Never Smoked Tobacco - Immunization History Most Recent Influenza Vaccination: Not the season Vaccination Up to Date: Yes <Justyna Ruiz - Last Filed: 11/16/17 11:44> Review of Systems Constitutional: Negative Skin: Negative Eyes: Negative ENT: Negative Respiratory: Cough Cardiovascular: Negative Gastrointestinal: Negative Genitourinary: Negative Motor: Negative Neurovascular: Negative Musculoskeletal: Myalgia Neurological: Negative Psychological: Negative Is Patient Immunocompromised?: Yes All Other Systems Reviewed And Are Negative: Yes <Justyna Ruiz - Last Filed: 11/16/17 11:44> Physical Exam Triage Information Reviewed: Yes Appearance: Well-Appearing Vital Signs: Initial Vital Signs Temp 98.5 F 11/16/17 09:28 Pulse 83 11/16/17 09:28 Resp 20 11/16/17 09:28 BP 127/72 11/16/17 09:28 Pulse Ox 97 11/16/17 09:28 Eyes: Positive: Conjunctiva Clear ENT: Positive: Pharynx normal, TMs normal. Negative: Nasal congestion, Nasal drainage Neck: Positive: Supple, Nontender, No Lymphadenopathy Respiratory: Positive: Lungs clear, No respiratory distress, Decreased breath sounds, Other: - Mildly congested cough Cardiovascular: Positive: RRR, No Murmur Abdomen Description: Positive: Nontender, No Organomegaly, Soft Bowel Sounds: Positive: Present Musculoskeletal: Positive: ROM Intact Neurological: Positive: Alert Psychological: Positive: Age Appropriate Behavior Skin Exam: Normal <Justyna Ruiz - Last Filed: 11/16/17 11:44> Vital Signs: Initial Vital Signs Temp 98.5 F 11/16/17 09:28 Pulse 83 11/16/17 09:28 Resp 20 11/16/17 09:28 BP 127/72 11/16/17 09:28 Pulse Ox 97 11/16/17 09:28 <Fabby Mccray - Last Filed: 11/16/17 11:48> Course/Dx - Course Course Of Treatment: non toxic, not hypoxic; however, pt has a hospital aquired multilobar pneumonia post intubation along with immune suppression thus ER transfer required. pt wishes to consult and will advised me of her decision. Pt agrees to ER transfer but is declining ems thus will drive herself to the ER. Report given to Christ Díaz NP at [facility]. advised of multilpe lobe pneumonia post intubation and immune suppressed. advised disck with reading being sent with pt. - Differential Dx - Multi-Symptom Provider Diagnoses: Multilobar pneumonia post intubation, immune suppression, Lupus <Justyna Ruiz - Last Filed: 11/16/17 11:44> Discharge - Sign-Out/Discharge Documenting (check all that apply): Discharge/Admit/Transfer - Billing Disposition and Condition Condition: STABLE Disposition: EMTPROSPER <Justyna Ruiz - Last Filed: 11/16/17 11:44> - Billing Disposition and Condition Condition: STABLE Disposition: EMTALA <Fabby Mccray - Last Filed: 11/16/17 11:48> - Discharge Plan Condition: Stable Disposition: TRANS HIGHER LVL OF CARE FAC Referrals: Swetha Benitez MD [Primary Care Provider] - Additional Instructions: GO DIRECTLY TO THE [facility] ER FROM HERE DISCUSSED Attestations User Type: Provider - I was available for consult. This patient was seen by the ISAMAR. The patient was not presented to, seen by, or examined by me. -Naomi <Fabby Mccray - Last Filed: 11/16/17 11:48>
[2017-11-16] MEDS ORDERED: Albuterol 2.5 MG/3 ML NEB.SOL* (0.083%) INH ONE (10:24)
--- NOTE | 2017-11-16 11:18 | RAD ---
HISTORY: Cough, congestion, status post intubation COMPARISONS: None VIEWS: 4: Frontal dual-energy and lateral views of the chest. FINDINGS: CARDIOMEDIASTINAL SILHOUETTE: The cardiomediastinal silhouette is normal. BETH: The beth are normal. PLEURA: The costophrenic angles are sharp. No pleural abnormalities are noted. LUNG PARENCHYMA: There is patchy alveolar opacification of the right lower lung field and left mid and lower lung field. ABDOMEN: The upper abdomen is clear. There is no subphrenic gas. BONES AND SOFT TISSUES: No bone or soft tissue abnormalities are noted. OTHER: None. IMPRESSION: MULTIFOCAL AIRSPACE DISEASE IN BOTH LUNGS. RECOMMEND FOLLOW-UP UNTIL RESOLUTION TO EXCLUDE UNDERLYING PULMONARY PARENCHYMAL PATHOLOGY.
[2017-11-16 11:19] VITALS: BP 125/72
== END 2017-11-16 11:49 | disposition short-term general hospital (02) ==
LOC: UCCORT 09:16
DX: J95.89 Other postprocedural complications and disorders of respiratory system, not elsewhere classified (principal); D89.9 Disorder involving the immune mechanism, unspecified; M32.9 Systemic lupus erythematosus, unspecified
CPT/HCPCS: 71046; 99212; G0463

== ENCOUNTER 2017-12-04 09:37 | Emergency (ER) | payer OTHER ==
[2017-12-04 09:49] VITALS: BP 130/84
--- NOTE | 2017-12-04 10:13 | UC ---
Upper Extremity HPI - HPI Summary HPI Summary: She has Lupus and is on plaquenil and 3 years of prednisone. She was recently admitted with pnuemonia and was intubated. She now has right arm pain at the iv site for about two days. It is tender mildly. She has had some chills and low grade temp of 100.0 this morning. She has taken some tylenol. cough has resolved. No abd pain or flank pain. No urinary symptoms. SHe has stephanie LE pain and aching without trauma or redness. - History of Current Complaint Chief Complaint: UCGeneralIllness Stated Complaint: RIGHT ARM COMPLAINT,FEVER, BILATERAL KNEE PAIN Time Seen by Provider: 12/04/17 09:57 Hx Obtained From: Patient Hx Last Menstrual Period: 11/07/17 Onset/Duration: Gradual Onset, Lasting Days Severity Initially: Moderate Severity Currently: Moderate Pain Intensity: 8 Location Of Pain: Is Discrete @ Character: Aching Aggravating Factor(s): Other - palpation. Alleviating Factor(s): Rest Associated Signs And Symptoms: Positive: Bruising, Fever. Negative: Swelling, Redness, Weakness, Numbness/Tingling - Allergies/Home Medications Allergies/Adverse Reactions: Allergies Allergy/AdvReac Type Severity Reaction Status Date / Time No Known Allergies Allergy Verified 11/16/17 09:26 PMH/Surg Hx/FS Hx/Imm Hx Previously Healthy: No - Lupus. Recent hospitalization. - Surgical History Surgical History: Yes Surgery Procedure, Year, and Place: C-Sections, 2011 2012 - Family History Known Family History: Positive: Other - [place] - Social History Lives: With Family Alcohol Use: Occasionally Substance Use Type: None Smoking Status (MU): Never Smoked Tobacco - Immunization History Most Recent Influenza Vaccination: Not the Vaccination Up to Date: Yes Review of Systems Constitutional: Fever Skin: Bruising All Other Systems Reviewed And Are Negative: Yes Physical Exam Triage Information Reviewed: Yes Appearance: Well-Appearing, Obese Vital Signs: Initial Vital Signs Temp 97.7 F 12/04/17 09:44 Pulse 98 12/04/17 09:44 Resp 19 12/04/17 09:44 BP 130/84 12/04/17 09:44 Pulse Ox 100 12/04/17 09:44 Vital Signs Reviewed: Yes Eyes: Positive: Conjunctiva Clear ENT: Positive: Normal ENT inspection. Negative: Pharyngeal erythema, Nasal congestion Neck: Positive: Supple, Nontender, No Lymphadenopathy. Negative: Nuchal Rigidity Respiratory: Positive: Lungs clear, Normal breath sounds, No respiratory distress, No accessory muscle use. Negative: Respiratory distress, Decreased breath sounds, Accessory muscle use, Crackles, Rhonchi, Stridor, Wheezing Cardiovascular: Positive: No Murmur, Pulses Normal, Brisk Capillary Refill Abdomen Description: Positive: No Organomegaly. Negative: CVA Tenderness (R), CVA Tenderness (L), Distended, Guarding Musculoskeletal: Positive: Strength Intact, ROM Intact, No Edema Neurological: Positive: Alert, Muscle Tone Normal. Negative: Fatigued Psychological: Positive: Age Appropriate Behavior Skin: Negative: Other - right lateral forearm bruising. There are superficial nodules along the vein that are tender. There is mild tendenress in the right axilla without induration or adenopathy. Upper Extremity Course/Dx - Course Course Of Treatment: Rosie is immunocompromised from prednisone and has recently been admitted. She says she was feeling better and then started to feel generally mildly ill along with right arm pain and tenderness at the IV site. She does not have fever here or rigors or tachycardia. Fever is at times elisuve in he though. Exam shows tenderness and bruising without obvious cellulitis. HOwever, she is higher risk. Urine culture ordered. chest x ray shows resolution of pneumonia. We could not obtain labs nor ultrasound of the arm to eval for phlebitis and or DVT. I discussed transfer to the ED with Rosie and she would rather f/u with PCP's office to have studies arranged outpatient. At this point she does not meet SIRS criteria. Blood cultures are not absolutely necessary. We will start antibiotics and talk to pcp to arrange close follow. I will arrange ultrasound for tomorrow and have results forwareded to Dr. Benitez. She agrees to have her seen on Saturday. - Differential Dx/Diagnosis Differential Diagnosis/HQI/PQRI: Contusion, Hematoma, Septic Arthritis, Strain, Sprain Provider Diagnoses: phlebitis. cellulitis. Discharge - Sign-Out/Discharge Documenting (check all that apply): Discharge/Admit/Transfer - Discharge Plan Condition: Stable Disposition: HOME Prescriptions: Sulfamethox/Trimethoprim DS* [Bactrim DS 800/160 TAB*] 2 tab PO BID #40 tab Patient Education Materials: Superficial Thrombophlebitis (ED) Referrals: Swetha Benitez MD [Primary Care Provider] - Additional Instructions: Follow up with Dr. Benitez on Saturday and we have arranged an ultrasound for you for tomorrow. - Billing Disposition and Condition Condition: STABLE Disposition: Home
--- NOTE | 2017-12-04 10:17 | RAD ---
HISTORY: Low-grade fever, recent pneumonia COMPARISONS: November 16, 2014 VIEWS: 4: Frontal dual-energy and lateral views of the chest. FINDINGS: CARDIOMEDIASTINAL SILHOUETTE: The cardiomediastinal silhouette is normal. BETH: The beth are normal. PLEURA: The costophrenic angles are sharp. No pleural abnormalities are noted. LUNG PARENCHYMA: There has been improved aeration of the lungs bilaterally. ABDOMEN: The upper abdomen is clear. There is no subphrenic gas. BONES AND SOFT TISSUES: No bone or soft tissue abnormalities are noted. OTHER: None. IMPRESSION: NO ACTIVE CARDIOPULMONARY DISEASE.
[2017-12-04] MEDS ORDERED: cefTRIAXone VIAL(*) 1,000 MG VIAL IM ONE (10:53)
[2017-12-04] MEDS ORDERED: Lidocaine 1% MPF* 2 ML VIAL INJ ONE (10:53)
[2017-12-04] MEDS ORDERED: Lidocaine 1%* 5 ML VIAL ONE (10:57)
== END 2017-12-04 11:44 | disposition home or self-care (01) ==
LOC: UCCORT 09:37
DX: T80.1XXA Vascular complications following infusion, transfusion and therapeutic injection, initial encounter (principal); I80.8 Phlebitis and thrombophlebitis of other sites; Y84.8 Other medical procedures as the cause of abnormal reaction of the patient, or of later complication, without mention of misadventure at the time of the procedure; Y82.8 Other medical devices associated with adverse incidents; Y92.230 Patient room in hospital as the place of occurrence of the external cause
CPT/HCPCS: 71046; 81003; 87086; 96372; 99212; G0463; J0696

== ENCOUNTER 2019-04-14 18:55 | Emergency (ER) | payer BC ==
--- OUTSIDE RECORDS SUMMARY | 2019-04-14 19:08 | XMS REPORT | Continuity of Care Document ---
:1985 External Reference #:[id number] Author Name JENNY Rendon Address [address] [place] [address] Care Team Providers Name Role Phone Swetha Benitez M.D. Care Team Information Youth Coordinator [phone] Problems Active Problems Provider Date Angioedema Audrey Pastrana M.D. Onset: 12/30/2018 Social History Type Date Description Comments Sex Unknown ETOH Use Occasionally consumes alcohol Tobacco Use Start: Unknown Patient has never smoked Recreational Drug Use Denies Drug Use Allergies, Adverse Reactions, Alerts Description No Known Drug Allergies Medications Active Medications SIG Qnty Indications Ordering Provider Date Alprazolam as needed Unknown 0.25mg Tablets Prednisone TK 2 TS PO D Unknown 10mg Tablets Eliquis am and pm Unknown 5mg Tablets Cetirizine HCL 4 times daily Ashley Shields 10mg Tablets M.D. Ranitidine HCL Unknown 300mg Tablets Medications Administered in Office Medication SIG Qnty Indications Ordering Provider Date Biologic Agent Administration JENNY Rendon 02/26/2019 Injection Biologic Agent Administration JENNY Bro 02/04/2019 Injection Biologic Agent Administration JENNY Bro 01/06/2019 Injection Injection Allergy Injection 01/06/2019 Injection Immunizations CPT Code Status Date Vaccine Lot # [id number] Given Unknown Influenza Vaccine Vital Signs Date Vital Result Comment 02/26/2019 10:50am Height 63.5 inches 5'3.50" Weight 281.00 lb Weight 127.462 kg Respiratory Rate 25 /min Heart Rate 88 /min O2 % BldC Oximetry 97 % BP Systolic 103 mmHg BP Diastolic 64 mmHg BMI (Body Mass Index) 49.0 kg/m2 02/04/2019 9:38am Height 63.5 inches 5'3.50" Weight 280.00 lb Weight 127.008 kg BMI (Body Mass Index) 48.8 kg/m2 Results Description No Information Available Procedures Date Code Description Status 02/26/2019 02679 Biologic Agent Administration Completed 02/04/2019 01694 Biologic Agent Administration Completed 01/06/2019 68855 Biologic Agent Administration Completed 01/06/2019 52352 Injection Completed Medical Devices Description No Information Available Encounters Type Date Location Provider Dx Diagnosis Office Visit 12/30/2018 [facility] Audrey Arteaga T78.3xxA Angioneurotic edema, 1:20p Bhavesh Pastrana initial encounter Assessments Date Code Description Provider 02/26/2019 L50.1 Idiopathic urticaria JENNY Rendon 02/04/2019 T78.3xxA Angioneurotic edema, initial encounter Audrey Pastrana M.D. 02/04/2019 T78.3xxA Angioneurotic edema, initial encounter JENNY Bro 02/04/2019 L50.1 Idiopathic urticaria Audrey Pastrana M.D. 02/04/2019 L50.1 Idiopathic urticaria Mable UlJENNY paredes 01/06/2019 L50.1 Idiopathic urticaria Audrey Pastrana M.D. 01/06/2019 L50.1 Idiopathic urticaria Mable UlJENNY paredes 01/06/2019 L50.1 Idiopathic urticaria Allergy Injection 01/06/2019 T78.3xxA Angioneurotic edema, initial encounter Audrey Pastrana M.D. 01/06/2019 T78.3xxA Angioneurotic edema, initial encounter JENNY Bro 12/30/2018 T78.3xxA Angioneurotic edema, initial encounter Audrey Pastrana M.D. Plan of Treatment Future Appointment(s):04/02/2019 8:40 am - JENNY Rendon at [facility]02/26/2019 - MICHAEL RendonCL50.1 Idiopathic urticariaRecommendations :Continue all medications as prescribed Cetirizine HCL 10 mg 4 times daily Refrain from wearing perfumes/scented colognes while visiting our office. Will give Xolair today Patient to discuss BMI with their primary-care provider. Educational literature available for patient review. Functional Status Description No Information Available Mental Status Description No Information Available Referrals Description No Information Available
--- OUTSIDE RECORDS SUMMARY | 2019-04-14 19:08 | XMS REPORT | Continuity of Care Document ---
:1985 External Reference #:[id number] Author Name JENNY Rendon (transmitted by agent of provider Alvin Goncalves) Address [address] [place] [address] Care Team Providers Name Role Phone Swetha Benitez M.D. Care Team Information Heel Caser [phone] Problems Active Problems Provider Date Angioedema Audrey [...] CPT Code Status Date Vaccine Lot # [id number] Given Unknown Influenza Vaccine Vital Signs Date Vital Result Comment 04/02/2019 1:17pm Height 63.5 inches 5'3.50" Weight 279.00 lb Weight 126.554 kg Respiratory Rate 20 /min Heart Rate 76 /min O2 % BldC Oximetry 99 % BP Systolic 111 mmHg BP Diastolic 71 mmHg BMI (Body Mass Index) 48.6 kg/m2 02/26/2019 10:50am Height 63.5 inches 5'3.50" Weight 281.00 lb Weight 127.462 kg Respiratory Rate 25 /min Heart Rate 88 /min O2 % BldC Oximetry 97 % BP Systolic 103 mmHg BP Diastolic 64 mmHg BMI (Body Mass Index) 49.0 kg/m2 Results Description No Information Available Procedures Date Code Description Status 02/26/2019 69480 Biologic Agent Administration Completed 02/04/2019 35718 Biologic Agent Administration Completed 01/06/2019 90047 Biologic Agent Administration Completed 01/06/2019 49226 Injection Completed Medical Devices Description No Information Available Encounters Type Date Location Provider Dx Diagnosis Office Visit 04/02/2019 [facility] Claudette Bruno T78.3xxA Angioneurotic edema, 1:20p JENNY initial encounter Office Visit 12/30/2018 [facility] Audrey Arteaga T78.3xxA Angioneurotic edema, 1:20p Bhavesh Pastrana initial encounter Assessments Date Code Description Provider 04/02/2019 T78.3xxA Angioneurotic edema, initial encounter Audrey Pastrana M.D. 04/02/2019 T78.3xxA Angioneurotic edema, initial encounter JENNY Rendon 02/26/2019 L50.1 Idiopathic urticaria Audrey Pastrana M.D. 02/26/2019 L50.1 Idiopathic urticaria JENNY Rendon 02/04/2019 T78.3xxA Angioneurotic edema, initial encounter Audrey Pastrana M.D. 02/04/2019 T78.3xxA Angioneurotic edema, initial encounter JENNY Bro 02/04/2019 L50.1 Idiopathic urticaria Audrey Pastrana M.D. 02/04/2019 L50.1 Idiopathic urticaria JENNY Bro 01/06/2019 L50.1 Idiopathic urticaria Audrey Pastrana M.D. 01/06/2019 L50.1 Idiopathic urticaria Mable JENNY Mccann 01/06/2019 L50.1 Idiopathic urticaria Allergy Injection 01/06/2019 T78.3xxA Angioneurotic edema, initial encounter Audrey Pastrana M.D. 01/06/2019 T78.3xxA Angioneurotic edema, initial encounter JENNY Bro 12/30/2018 T78.3xxA Angioneurotic edema, initial encounter Audrey Pastrana M.D. Plan of Treatment Future Appointment(s):05/05/2019 4:00 pm - JENNY Bro at [facility]04/02/2019 - ELIGIO Rendon-CT78.3xxA Angioneurotic edema, initial encounterFollow up:f/u 4 weeksRecommendations:Continue all medications as prescribed Prednisone 10 mg tk 2 ts PO D Eliquis 5 mg am and pm Cetirizine HCL 10 mg 4 times daily give Xolair today Refrain from wearing perfumes/ scented colognes while visiting our office. Patient to discuss BMI with their primary-care provider. Educational materials provided to the patient. Functional Status Description No Information Available Mental Status Description No Information Available Referrals Description No Information Available
[2019-04-14 19:22] VITALS: BP 123/77
--- NOTE | 2019-04-14 19:24 | UC ---
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 Increasing pain with weight bearing. On chronic steroids x 6 years for treatment of lupus, takes xolair for angioedema. On her feet all day, active, body weight high. Remote hx of torn ligaments right lateral malleolus of ankle. Pain worse in the morning, has not been using analgesics. Worsens again during the day with weight bearing, and had to sit to teacher her gym classes today. Pain much worse since a 4 mile corn maze walk this week. - History of Current Complaint Chief Complaint: UCLowerExtremity Stated Complaint: RT FOOT COMPLAINT Time Seen by Provider: 04/14/19 19:21 Hx Obtained From: Patient Hx Last Menstrual Period: 04/10/19 Onset/Duration: Gradual Onset, Lasting Weeks - 3-4 Pain Intensity: 4 Aggravating Factor(s): Standing, Ambulation Alleviating Factor(s): Rest - Risk Factors Gout Risk Factors: Obesity DVT Risk Factors: Negative Septic Arthritis Risk Factor: Negative - Allergies/Home Medications Allergies/Adverse Reactions: Allergies Allergy/AdvReac Type Severity Reaction Status Date / Time No Known Allergies Allergy Verified 11/16/17 09:26 Home Medications: Home Medications Omalizumab [Xolair] 75 mg SQ MONTHLY 04/14/19 [History Confirmed 04/14/19] PMH/Surg Hx/FS Hx/Imm Hx - Additional Past Medical History Additional PMH: lupus obesity Previously Healthy: No GI/ History: Gastroesophageal Reflux - Surgical History Surgical History: Yes Surgery Procedure, Year, and Place: C-Sections, 2011 2012 - Family History Known Family History: Positive: Other - [place] - Social History Occupation: Employed Full-time Lives: With Family Alcohol Use: Occasionally Substance Use Type: None Smoking Status (MU): Never Smoked Tobacco - Immunization History Most Recent Influenza Vaccination: Not the Vaccination Up to Date: Yes Review of Systems All Other Systems Reviewed And Are Negative: Yes Constitutional: Positive: Negative Skin: Positive: Negative Eyes: Positive: Negative ENT: Positive: Negative Respiratory: Positive: Negative Cardiovascular: Positive: Negative Gastrointestinal: Positive: Negative Genitourinary: Positive: Negative Motor: Positive: Decreased ROM Physical Exam Triage Information Reviewed: Yes Appearance: Pain Distress - mild while seated., Obese Vital Signs: Initial Vital Signs Temp 97.0 F 04/14/19 19:17 Pulse 72 04/14/19 19:17 Resp 16 04/14/19 19:17 BP 123/77 04/14/19 19:17 Pulse Ox 100 04/14/19 19:17 ENT: Positive: Normal ENT inspection Respiratory: Positive: Lungs clear, Normal breath sounds Cardiovascular: Positive: RRR, No Murmur Musculoskeletal Exam: Other - mild diffuse swelling of right ankle and foot. No tenderness lateral or medial malleolus, rom in ankle is ok. Tenderness over fifth metatarsal and in midfoot. Tenderness plantar fascia insertion. Psychological Exam: Normal Skin Exam: Normal Diagnostics - Radiology No standard instances Radiology Interpretation Completed By: ED Physician Summary of Radiographic Findings: + soft tissue swelling, preserved joint spaces , no fracture seen. Possible early bone spur formation Lower Extremity Course/Dx - Course Course Of Treatment: immobilize with CAM walker for possible stress fracture, some features of plantar fasciitis. - Differential Dx/Diagnosis Differential Diagnosis/HQI/PQRI: Fracture (Closed) - stress, Strain, Other - plantar fasciitis. Provider Diagnosis: Foot pain, right Discharge ED - Sign-Out/Discharge Documenting (check all that apply): Patient Departure All imaging exams completed and their final reports reviewed: No - Discharge Plan Condition: Stable Disposition: HOME Patient Education Materials: Foot Sprain (ED) Referrals: Swetha Benitez MD [Primary Care Provider] - Rene Schultz MD [Medical Doctor] - Additional Instructions: As discussed, possible sources of foot pain include stress fracture, and some of your symptoms are suggestive of plantar fasciitis. Foot immobilization will help with either problem. You have been referred to Dr. Schultz for evaluation. Continue use of acetaminophen for control of pain. - Billing Disposition and Condition Condition: STABLE Disposition: Home
--- NOTE | 2019-04-15 07:53 | UC ---
- Progress Note Progress Note: xray report right foot: REPORT AND IMPRESSION: #. Mild soft tissue swelling about the forefoot greatest along the plantar aspect at the level of the metatarsals and metatarsal phalangeal joints. Negative for fracture or malalignment. No periosteal reaction or focal osseous lesions evident. Mild osteoarthritis at the first metatarsal phalangeal joint. Course/Dx - Diagnoses Provider Diagnoses: Foot pain, right Discharge ED - Sign-Out/Discharge Documenting (check all that apply): Patient Departure All imaging exams completed and their final reports reviewed: Yes - Discharge Plan Condition: Stable Disposition: HOME Patient Education Materials: Foot Sprain (ED) Referrals: Swetha Benitez MD [Primary Care Provider] - Rene Schultz MD [Medical Doctor] - Additional Instructions: As discussed, possible sources of foot pain include stress fracture, and some of your symptoms are suggestive of plantar fasciitis. Foot immobilization will help with either problem. You have been referred to Dr. Schultz for evaluation. Continue use of acetaminophen for control of pain. - Billing Disposition and Condition Condition: STABLE Disposition: Home
== END 2019-04-14 20:38 | disposition home or self-care (01) ==
LOC: UCCORT 18:55
DX: M79.671 Pain in right foot (principal); M25.474 Effusion, right foot; M19.071 Primary osteoarthritis, right ankle and foot; M32.9 Systemic lupus erythematosus, unspecified; E66.9 Obesity, unspecified
CPT/HCPCS: 99212; G0463

== ENCOUNTER 2019-06-12 11:54 | Emergency (ER) | payer BC ==
--- OUTSIDE RECORDS SUMMARY | 2019-06-12 12:00 | XMS REPORT | Summary of Care ---
:1985 Author Organization [facility] Address [address] [place] [address] Care Team Providers Name Role Phone Swetha Benitez MD Primary Care Provider Reason for Referral Home Health Care (Routine) Status Reason Specialty Diagnoses / Referred By Referred To Procedures Contact Contact Open Specialty Home Health Diagnoses Angioedema, initial encounter Joesph Duenas Services Services MD Required [address] [place] [address] Email: [email or web address] Reason for Visit Reason Comments Angioedema Auth/Cert Status Reason Specialty Diagnoses / Procedures Referred By Contact Referred To Contact Diagnoses Angioedema, initial encounter Angioedema Angioedema [[id number]] Encounter Details Date Type Department Care Team Description 05/19/2019 - Hospital 06A GENERAL Hari Gamino III, MD [address] [place] [address] [phone] Angioedema, 05/22/2019 Encounter MEDICINE Sergio Spears MD [address] [facility] 2nd Floor [address] [place] [address] [phone] initial encounter [address] Neftaly Casas MD [address] [place] [address] [phone] (Primary Dx) [place] Vannesa Sebastian MD [address] [place] [address] [phone] Joesph Duenas MD [facility] [place] [address] Allergies No Known Allergiesdocumented as of this encounter (statuses as of 05/22/2019) Medications Medication Sig Dispensed Refills Start End Date Status Date EPIPEN 2-BERT 0.3 Inject 0.3 mg 0 Active MG/0.3ML SOAJ into the skin as needed. ranitidine (ZANTAC) TAKE 1 TABLET 180 tablet 2 Active 150 MG TWICE A DAY 8 tabletIndications: Systemic lupus erythematosus, unspecified SLE type, unspecified organ involvement status alprazolam (XANAX) Take 0.25 mg 0 Active 0.25 MG tablet by mouth every morning alprazolam (XANAX) Take 0.125 mg 0 Active 0.25 MG tablet by mouth nightly diphenhydrAMINE HCl Take 50 mg by 0 Active 25 MG Oral Capsule mouth Two (BENADRYL) Times Daily Omalizumab 150 MG Inject 300 mg 0 Active Subcutaneous into the skin Solution every 28 Reconstituted (twenty-eight (XOLAIR) ) days Last given 05/05/19, next dose due 06/02/19 predniSONE 5 MG Oral Take 1 tablet 0 Active Tablet (DELTASONE) by mouth 9 daily Start after decadron taper. Cetirizine HCl 10 MG Take 1 tablet 120 tablet 0 05/20/20 Active Oral Tablet (ZYRTEC) by mouth Four 9 20 times daily Dexamethasone 4 MG Take 1 tablet 12 tablet 0 05/24/20 Active Oral Tablet by mouth 9 (DECADRON) Three times daily for 2 daysThen one tab twice daily for 2 days, then one tab daily for 2 days then stop. diphenhydrAMINE HCl Inject 1 mL 10 mL 0 Active 50 MG/ML Injection into the vein 9 Solution (BENADRYL) every 4 (four) hours as needed for Itching gabapentin Take 600 mg 0 05/19/20 Discontinued (NEURONTIN) 600 MG by mouth 9 (Medication tablet twice daily. Reconcilation) cetirizine (ZYRTEC) Take 10 mg by 0 05/19/20 Discontinued 10 MG tablet mouth Four 19 (Medication times daily Reconcilation) apixaban (ELIQUIS) 5 Take 5 mg by 0 05/19/20 Discontinued MG tablet mouth Two 19 (Medication Times Daily Reconcilation) predniSONE 5 MG Oral Take 5 mg by 0 05/22/20 Discontinued Tablet (DELTASONE) mouth daily 19 (Reorder) diphenhydrAMINE HCl Inject 1 mL 10 mL 0 05/22/20 Discontinued 50 MG/ML Injection into the vein 03 19 Solution (BENADRYL) every 3 (three) hours as needed for Itching documented as of this encounter (statuses as of 05/22/2019) Active Problems Patient Care Coordination Note Dr. Vincenzo Tripathi of [facility]. Immunology Problem Noted Date Class 3 severe obesity in adult 07/31/2018 Facial swelling 07/26/2018 Angio-edema 07/26/2018 Chest pain 06/10/2018 Required emergent intubation 11/13/2017 On mechanically assisted ventilation 11/13/2017 Fibromyalgia 02/03/2016 Other forms of systemic lupus erythematosus 11/27/2015 [employer] current use of systemic steroids 11/27/2015 Encounter for termite exterminator helper use of mycophenolate mofetil 11/18/2015 Intractable headache 10/20/2015 Anxiety 10/20/2015 Inflammatory arthritis 08/18/2015 Long-term use of Plaquenil 08/18/2015 Unintentional weight loss 08/06/2015 Splenomegaly 08/06/2015 Angioedema 08/04/2015 Compromised respiratory status 08/04/2015 HTN (hypertension) 12/02/2014 Vitamin D deficiency 12/02/2014 Other postprocedural status(V45.89) 10/11/2014 Overview: 10/04/2014 right skin lesion removal with Dr. Tamayo: SKIN, RIGHT BREAST, BIOPSY - FOCAL CHRONIC INFLAMMATION. Skin lesion 09/10/2014 Overview: Right breast, 9 o'clock Other postprocedural status(V45.89) 08/25/2014 Overview: Right Nipple excision Nipple discharge 06/07/2014 Overview: Right, spontaneous, clear, single-duct Family history of malignant neoplasm of breast 06/07/2014 Mastodynia, female 05/16/2014 documented as of this encounter (statuses as of 05/22/2019) Resolved Problems Problem Noted Date Resolved Date Swelling of left side of face 11/27/2015 03/28/2016 Angioedema 11/27/2015 02/04/2016 Encounter for termite exterminator helper use of mycophenolate mofetil 11/27/2015 12/03/2015 longterm current use of systemic steroids 10/28/2015 02/13/2016 Ventilator associated pneumonia 10/20/2015 03/28/2016 Airway compromise 10/12/2015 11/13/2017 Undifferentiated connective tissue disease 08/18/2015 12/03/2015 Weight loss 08/06/2015 08/06/2015 Allergic angioedema 07/29/2015 10/29/2015 Overview: p Pt had a vaginal procedure 2 days ago and was fine yesterday, but awoke with swelling od herlips and swelling of her tongue. Was tx with epi and benadryl and prednisone 60 mg. And send to the ED whe re she has not really improved and in fact had recurrent symptoms not including pulmonary complaints. States her arms and legs are itching. Pt given iv solumedrol, epi and another 50 mg of benadryl. Plan:admit to obs.tele.. History of long-term use of multiple prescription drugs 07/29/2015 10/29/2015 Overview: This pt is or has recently been on a total of 11 drugs (see list), plus whatever was used for her procedure 2 days ago. Plan: try to eliminate. Allergic reaction 07/29/2015 11/19/2015 documented as of this encounter (statuses as of 05/22/2019) Immunizations Name Administration Dates Next Due Influenza Quad IM Pres Free (0.5 mL dose) 05/19/2019, 06/11/2018, 05/11/2016 Pneumococcal Conjugate PCV13 03/23/2016 documented as of this encounter Social History Tobacco Use Types Packs/Day Years Used Date Never Smoker 0 Smokeless Tobacco: Never Used Alcohol Use Drinks/Week oz/Week Comments Yes 1 Standard drinks or equivalent 1.0 occassional Sex Assigned at Date Recorded Not on file Job Start Date Occupation Industry Not on file Not on file Not on file Travel History Travel Start Travel End No recent travel history available. documented as of this encounter Last Filed Vital Signs Vital Sign Reading Time Taken Comments Blood Pressure 133/74 05/22/2019 11:00 AM EST Pulse 60 05/22/2019 11:00 AM EST Temperature 36.8 05/22/2019 11:00 AM C (98.2 EST F) Respiratory Rate 18 05/22/2019 11:00 AM EST Oxygen Saturation 98% 05/22/2019 11:00 AM EST Inhaled Oxygen Concentration - - Weight 123.6 kg (272 lb 7.8 oz) 05/19/2019 4:00 PM EST Height 162.6 cm (5' 4") 05/19/2019 10:37 AM EST Body Mass Index 46.77 05/19/2019 10:37 AM EST documented in this encounter Discharge Instructions Constance Gonzalez - 05/21/2019 9:50 AM ESTPatient to call Primary Care Physician upon discharge for a hospital follow up. documented in this encounter Progress Notes Marlys Way RN - 05/22/2019 9:44 AM ESTPer Team at AM rounds patient is ready for d/c home on IV medications. CM met with patient. She has gone home on IV medications with PICC line before and has utilized [facility]. CM launched to [facility] at patient request and confirmed with Eladio at [facility] that they would be able to assist in facilitating adischarge today. Script placed for home referral and CM will follow for further needs. Ike Paulson RN - 05/21/2019 1:59 PM ESTPICC Line Insertion Procedure Note Procedure: Insertion of #5 FR/18G/18G PICC Indications: Home IV therapy Procedure Details Informed consent was obtained for the procedure. Risks of bleeding at site, infection, malposition,phlebitis, DVT or SVT were discussed. Maximum sterile technique was used including antiseptics, cap, gloves, gown, hand hygiene, mask and sheet. #5 FR/18G/18G PICC inserted to the R Basilic vein per hospital protocol. Blood return: yes Findings: Catheter inserted to 39 cm, with 2 cm. Exposed. Catheter was flushed with 20 cc NS. Patient did tolerate procedure well. Recommendations: PICC Brochure given to patient with teaching instruction. PICC Line Insertion Status: PICC successfully inserted using ultrasound guidance. PICC tip location confirmed utilizing the Vascular Positioning System (VPS) per policy CM C-34 - Central Lines and procedure PROC CM C-34A - Central Line Insertion and Removal. Steady Blue Bullseye symbol obtained confirming ideal PICC tip placement inthe lower 1/3 of the SVC/CAJ. CXR is not necessary to confirm placement. Appropriate order set placed in EPIC. Bedside nurse Nicol ELISE aware PICC is cleared for use per orders with all new IV administration sets. Jared Mendez DO - 05/21/2019 1:47 PM EST Internal Medicine Inpatient Progress Note Subjective Patient seen and examined on morning rounds. No acute events overnight. She does not have any complaints at this time and states she is doing well. She has noticed her facial swelling has improved since yesterday. Review of Systems Constitutional: Negative for chills, diaphoresis, fatigue and fever. HENT: Positive for facial swelling. Negative for congestion, rhinorrhea, sinus pressure, sinus pain,sore throat, trouble swallowing and voice change. Eyes: Negative for pain, discharge and itching. Respiratory: Negative for apnea, cough, chest tightness and shortness of breath. Cardiovascular: Negative for chest pain, palpitations and leg swelling. Gastrointestinal: Negative for abdominal distention, abdominal pain, constipation, diarrhea, nausea and vomiting. Genitourinary: Negative for difficulty urinating, frequency and hematuria. Musculoskeletal: Negative for arthralgias and back pain. Neurological: Negative for light-headedness, numbness and headaches. Psychiatric/Behavioral: Negative for agitation. Objective Temp: [36.2 C-36.6 C] 36.4 C Pulse: [67-101] 67 Resp: [18-22] 20 BP: (121-135)/(78-85) 134/81 SpO2: [96 %-98 %] 96 % O2 Therapy: Room air No intake or output data in the 24 hours ending 05/21/19 1347 I/O last 3 completed shifts: In: 0 Out: 500 [Urine:500] No intake/output data recorded. Physical Exam HENT: Head: Normocephalic and atraumatic. Nose: Nose normal. Mouth/Throat: Mucous membranes are moist. No oropharyngeal exudate or posterior oropharyngeal erythema. Oropharynx is clear. Eyes: Conjunctivae are normal. Right eye exhibits no discharge. Left eye exhibits no discharge. No scleral icterus. Neck: Neck supple. Cardiovascular: Normal rate, regular rhythm, normal heart sounds and normal pulses. Exam reveals no gallop and no friction rub. No murmur heard. Pulmonary/Chest: Effort normal and breath sounds normal. No respiratory distress. She has no wheezes. She has no rhonchi. She has no rales. Abdominal: Bowel sounds are normal. She exhibits no distension. There is no tenderness. There is no rebound and no guarding. Musculoskeletal: General: No deformity. Right lower leg: No edema. Left lower leg: No edema. Comments: Left sided facial swelling Neurological: She is alert. Skin: Skin is warm and dry. Psychiatric: Mood normal. Nursing note and vitals reviewed. Lines, Tubes, Monitors & Restraints Description Still Required? Comments PIV [x] Yes [] No Total Days of Anti-infective Therapy: 0 Laboratory Data (Most Recent in Past 3 Days) Lab 05/19/19 1216 05/20/19 0442 05/21/19 0521 WBC 5.7 6.8 11.5* HGB 14.0 12.6 13.8 HCT 43.0 39.6 41.7 MCV 91.5 92.7 90.7 PLT 297 244 180 Lab 05/19/19 1216 05/20/192 05/21/19 0521 NA 137 134* 139 K 4.0 4.1 4.4 CL 100 102 107 BICARBONATE 27 21* 18* GLUCOSE 86 154* 161* BUN 14 15 16 CREATININE 0.92* 0.66 0.78 Lab 05/21/19 0521 CALCIUM 9.0 Lab 05/19/19 1216 05/20/19 0442 05/21/19 0521 NEUTOPHILPCT 77 90 92 LYMPHOPCT 17 8 6 MONOPCT 6 2 2 EOSPCT 0 0 0 Invalid input(s): BILDIR Bedside Ultrasound Performed By Ed Result Date: 05/19/2019 [facility] - PRODUCTION Exam Date: 05/19/2019 Exam Type: Procedural - peripheral IV Marketing Finance Specialist: Delbert Stallings Attending: Hari Gamino Worksheet: [email or web address]_peripheralIV Exam Information: Exam type: Clinically indicated / billable Indication(s) for Exam: The exam was performed with the following indications: Failed or difficult IV access Location: Right Specific site of peripheral line: Cephalic vein Complications: None Interpretation: Successful U/S-guided peripheral line insertion Physician Approval: I reviewed and approve this exam.: Signed by Hari Gamino on Sunday, May 19, 2019 at 11:31:03 AM Confirmatory study: Images: Assessment/Plan Ms. Rosie Villatoro is a 34 y.o. female with PMH of recurrent angioedema requiring intubation who presented to [facility] with facial swelling and numbness secondary to angioedema. # Recurrent Angioedema, improving - etiology is currently unclear. Patient does not have C1 esterase deficiency. Not on any HILARIA inhibitors. She has underlying lupus, which could possibility be an underlying cause. - In ED, patient received IV solumedrol and benadryl in ED - ENT consulted, NPL showed patent airway with non-obstructive enlarged left tonsil. ENT recommendedc/w IV steroids and antihistamines. - patient was initially on IV Decadron 10 mg Q6H and IV benadryl 50 mg Q6H and Q4H PRN while admitted - will c/w IV Decaron 10 mg Q8H, IV Benadryl 50 mg Q6H and Q4H prn - PICC line will be placed today for plan for patient to be discharged tomorrow on IV Benadryl - Recommend continued follow-up with bulk plant operator. Patient was started on Omalizumab monthly since12/17. # Lupus - per chart review, patient is still being worked up for possible lupus diagnosis - Follows with outpatient rheumatology (Dr. Powell) - Last seen by rheumatology on 08/2018. Plan at that time was to restart cellcept and plaquenil and to continue with prednisone 10 mg daily. - Takes prednisone 5 mg daily at home. # Anxiety - Stable. No suicidal of homicidal ideation. - Continue with home Alprazolam PRN. # History of pulmonary embolism - Patient completed anticoagulation for 6 months, she reports that her PCP discontinued medication in 02/16. - Hemodynamically stable without any hypoxia, tachycardia, or tachypnea. # Morbid obesity - BMI 46.7 DVT Prophylaxis: low molecular weight heparin and SCD's while in bed GI Prophylaxis: H2-Faraz Reason: Risk for stress ulcers Functional Status: normal Code Status: Full Code Disposition: TBD Estimated Discharge Date: TBD The patient was discussed with Joesph Duenas MD who agrees with the assessment and plan as noted above. Signature: Jared BearDO Date/Time: May 21, 2019 1:47 PM Associated attestation - Joesph Duenas MD - 05/21/2019 3:58 PM ESTAttending note: I saw and evaluated the patient. Discussed with the resident and agree with the residents findings and plans as written, along with any supplemental dictated and/or attending documentation in the patient record by myself. Prior successful treatments consisted of placing a picc line an have the patient continue on benadryl IV PRN at home . Historically decadron in general didn't help her symptoms as much as the IV benadryl. We ordered a picc line today in anticipation to d/c patient in 1-2 days on IV benadryl. Will lower decadron to TID. Continue IV benadryl PRN. MD Seamus Aguirre Kimberly A, RN - 05/21/2019 10:10 AM ESTPatient transferred to team 1 medicine service overnight. Chart review completed: "Pt admitted form home with angioedema. Pt is , independent and lives with her and their two young kids. No CM needs identified at this time.The plan is to d/c home when medically cleared. Family to provide transport upon d/c." Per AM rounds, patient is doing well. No discharge needs anticipated at this time. CM will follow Reena Gary PharmD - 05/21/2019 7:54 AM EST Pharmacy Medication History Review Patient's Medications Previous Medications ALPRAZOLAM (XANAX) 0.25 MG TABLET Take 0.25 mg by mouth every morning Notes: >> DICK INIGUEZ November 04, 2018 3:44 PM Pt takes as needed. ALPRAZOLAM (XANAX) 0.25 MG TABLET Take 0.125 mg by mouth nightly Notes: >> DICK INIGUEZ November 04, 2018 3:44 PM Pt takes as needed. DIPHENHYDRAMINE HCL 25 MG ORAL CAPSULE (BENADRYL) Take 50 mg by mouth Two Times Daily Notes: -- EPIPEN 2-BERT 0.3 MG/0.3ML SOAJ Inject 0.3 mg into the skin as needed. Notes: >> FITZ MARIE SatDec 02, 2015 1:12 PM OMALIZUMAB 150 MG SUBCUTANEOUS SOLUTION RECONSTITUTED (XOLAIR) Inject 300 mg into the skin every28 (twenty-eight) days Last given 05/05/19, next dose due 06/02/19 Notes: -- PREDNISONE 5 MG ORAL TABLET (DELTASONE) Take 5 mg by mouth daily Notes: -- RANITIDINE (ZANTAC) 150 MG TABLET TAKE 1 TABLET TWICE A DAY Notes: -- The following medications have been added: Prednisone, Benadryl, Xolair The following medications have been removed: Eliquis, Certirizine, Gabapentin The following medications have been modified: Alprazolam The patient takes the following medications differently than prescribed: Patient is taking Alprazolam as needed in the morning and night. The patient is a good historian. Medications were verified with pharmacy and MD office. Medication History Source: [id number] [place] [address] AT [facility] & [address] [address] [facility] [phone] The above prior to admission medications have been compared to current inpatient orders. Medication history was completed based on information available during this patient encounter, the list above may not be all inclusive. Thank you, Reena Gutierrez, PharmDElectronically signed by Reena Gutierrez PharmChrist at 7:57 AM Stephanie Villegas RN - 05/20/2019 4:35 PM ESTReport received. Care assumed. Patient not in cardiorespiratory distress at this time. BLBS clear. No stridor. Pt Sitting in bed and comfortable. Pt requesting to change times of benadryl and decadronto 5 and 7pm. Pt is requesting a new IV. Continuous oximetry at bedside: HR 99 SAO2 98% on room air. Amanda Dougherty RN - 3:26 PM ESTCM following. Discussed in rounds. Started on a diet. ENT following. On steroids. No current therapyorders. Tolerating room air. Plan is home. Likely with no CM needs.Electronically signed by Amanda Chua RN at 3:28 PM Santiago Tanner MD - 05/20/2019 1:47 PM EST Internal Medicine Inpatient Progress Note Subjective Patient reports that she has had multiple episodes of angioedema in the last 5 years requiring 5/6 intubations. She says that it seems like her symptoms get worse usually at the time of the year when it gets colder. At the time of exam she denied any chest pain, shortness of breath, dyspagia, odynophagia. She reports crushing leg pains which she gets when she has "flares" but denies having any significant leg pain at the time of exam. Review of Systems Constitutional: Negative for appetite change, chills and fever. HENT: Negative for congestion, drooling, rhinorrhea and sinus pressure. Eyes: Negative for discharge. Respiratory: Negative for chest tightness. Cardiovascular: Negative for chest pain and palpitations. Gastrointestinal: Negative for abdominal distention, constipation and diarrhea. Genitourinary: Negative for difficulty urinating. Neurological: Negative for dizziness and headaches. Psychiatric/Behavioral: Negative for agitation. Objective Temp: [36.6 C-37 C] 36.8 C Pulse: [55-112] 66 Resp: [12-24] 15 BP: (97-145)/(58-91) 111/75 SpO2: [90 %-99 %] 98 % O2 Therapy: Room air Intake/Output Summary (Last 24 hours) at 05/20/2019 1347 Last data filed at 05/20/2019 1200 Gross per 24 hour Intake 1303.75 ml Output 1150 ml Net 153.75 ml I/O last 3 completed shifts: In: 1303.8 [I.V.:1253.8; IV Piggyback:50] Out: 650 [Urine:650] I/O this shift: In: 0 Out: 500 [Urine:500] Physical Exam HENT: Head: Normocephalic and atraumatic. Nose: Nose normal. Mouth/Throat: Mucous membranes are moist. No posterior oropharyngeal erythema. Neck: Normal range of motion. Cardiovascular: Tachycardia present. Pulmonary/Chest: Effort normal. Abdominal: Soft. Bowel sounds are normal. Musculoskeletal: Normal range of motion. General: No swelling. Neurological: She is alert. Skin: Skin is warm. Psychiatric: Mood normal. Lines, Tubes, Monitors & Restraints Description Still Required? Comments PIV [] Yes [] No Total Days of Anti-infective Therapy: 0 Laboratory Data (Most Recent in Past 3 Days) Lab 05/19/19 1216 05/20/19 0442 WBC 5.7 6.8 HGB 14.0 12.6 HCT 43.0 39.6 MCV 91.5 92.7 PLT 297 244 Lab 05/19/19 1216 05/20/19 0442 NA 137 134* K 4.0 4.1 CL 100 102 BICARBONATE 27 21* GLUCOSE 86 154* BUN 14 15 CREATININE 0.92* 0.66 Lab 05/20/19 0442 CALCIUM 8.5* Lab 05/19/19 1216 05/20/19 0442 NEUTOPHILPCT 77 90 LYMPHOPCT 17 8 MONOPCT 6 2 EOSPCT 0 0 Invalid input(s): BILDIR All laboratory, imaging and other diagnostics have been personally reviewed by me. No results found. Assessment/Plan Ms. Rosie Villatoro is a 34 y.o. female with a history significant for recurrent angioedema over theh past couple of years requiring intubation, presented 05/19 for evaluation of angioedema. She was seen by ENT in the ED, flexible NPL was performed which revealed a patent airway with non obstructiveenlarged tonsil. They recommended MICU admission due to her history of previous intubations. She wasadmitted to the ICU for monitoring and transferred to the floors 05/20. Active Problems: #Recurrent Angioedema -Etiology is unclear. No C1 esterase deficiency, she is not on HILARIA inhibitors. Her underlying lupus is suspected to be the cause of her symptoms -NPL performed by ENT showed patent airway with non obstructive enlarged left tonsil. She received IV solumedrol and benadryl in the ED. -ENT recommends IV steroids, combination H1 and H2 antihistamines: Diphenhydramine and ranitidine, Epinephrine indicated if airway obstruction or hypotension presents. She does not need to follow up with ENT per them. -Continue with IV Decadron 10mg Q6H and IV benadryl 50mg Q6H and Q4 PRN, Famotidine BID. #Lupus -She follows outpatient with a Insert Cutter; Dr Powell. -Cellcept and Plaquenil have been discontinued since 09/16 -She is on Monthly omalizumab, have to confirm appointment with him upon discharge -She is on Prednisone 5mg daily outpatient, she must be discharged on this. #Anxiety -Stable, C/w Home Alprazolam PRN #History of PE -She was on AC for 6 months, discontinued by her PCP 02/16 -Does not appear to have any symptoms concerning for PE at this time. #Morbid Obesity -BMI 46.7 DVT Prophylaxis: low molecular weight heparin GI Prophylaxis: H2-Faraz Reason: Risk for stress ulcers Functional Status: normal Code Status: Full Code Disposition: Plan discharge to: Home Estimated Discharge Date: TBD The patient was discussed with Neftaly Frank MD who agrees with the assessment and plan as noted above. Signature: Santiago Hines MD Date/Time: May 20, 2019 1:47 PM Associated attestation - Neftaly Frank MD - 05/20/2019 3:04 PM MARTIN saw and evaluated the patient. Discussed with the resident and agree with the residents findings and plans as written, along with any supplemental dictated and/or attending documentation in the patient record by myself. Continues to have recurrent angioedema. 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 She has been started on Xolair and continues to be on cetirizine and 10mg of prednisone at home. Continue IV steroids for now and close monitoring of airway. Laine Martin Waseem, DO - 05/20/2019 11:21 AM EST MICU 2 Inpatient Progress Note Subjective No acute events overnight. Patient reports having left-sided facial numbness/ tingling last night andthis morning. Denies any swelling, drooling, dysphagia, odynophagia, shortness of breath, stridor, or chest pain. Fluids were discontinued and patient was started on a regular diet. Review of Systems Constitutional: Negative for activity change, appetite change, chills and fever. HENT: Negative for drooling, ear pain, postnasal drip, rhinorrhea, sinus pain, sore throat, trouble swallowing and voice change. Left sided facial numbness/tingling. Respiratory: Negative for cough, shortness of breath, wheezing and stridor. Cardiovascular: Negative for chest pain and palpitations. Gastrointestinal: Negative for abdominal pain, diarrhea, nausea and vomiting. Genitourinary: Negative for dysuria, frequency and urgency. Musculoskeletal: Negative for neck pain and neck stiffness. Neurological: Negative for dizziness, light-headedness and headaches. Psychiatric/Behavioral: Negative for agitation and confusion. Objective Temp: [36.6 C-37 C] 36.8 C Pulse: [55-112] 81 Resp: [12-24] 16 BP: (97-145)/(58-91) 108/80 SpO2: [90 %-100 %] 98 % O2 Therapy: Room air Intake/Output Summary (Last 24 hours) at 05/20/2019 1121 Last data filed at 05/20/2019 0800 Gross per 24 hour Intake 1303.75 ml Output 650 ml Net 653.75 ml I/O last 3 completed shifts: In: 1303.8 [I.V.:1253.8; IV Piggyback:50] Out: 650 [Urine:650] No intake/output data recorded. Physical Exam Constitutional: She is oriented to person, place, and time. She does not appear ill. No distress. HENT: Head: Normocephalic and atraumatic. Mouth/Throat: Mucous membranes are moist. No posterior oropharyngeal erythema. Eyes: Pupils are equal, round, and reactive to light. Neck: Normal range of motion. Neck supple. Cardiovascular: Normal rate and regular rhythm. No murmur heard. Pulmonary/Chest: Effort normal and breath sounds normal. No stridor. No respiratory distress. She has no wheezes. She has no rhonchi. She has no rales. Abdominal: Soft. Bowel sounds are normal. There is no tenderness. Musculoskeletal: Normal range of motion. General: No swelling. Neurological: She is alert and oriented to person, place, and time. Skin: Skin is warm and dry. Psychiatric: Her behavior is normal. Mood, judgment and thought content normal. Nursing note and vitals reviewed. Lines, Tubes, Monitors & Restraints Description Still Required? Comments PIV [x] Yes [] No Laboratory Data (Most Recent in Past 3 Days) Lab 05/19/19 1216 05/20/19 0442 WBC 5.7 6.8 HGB 14.0 12.6 HCT 43.0 39.6 MCV 91.5 92.7 PLT 297 244 Lab 05/19/19 1216 05/20/19 0442 NA 137 134* K 4.0 4.1 CL 100 102 BICARBONATE 27 21* GLUCOSE 86 154* BUN 14 15 CREATININE 0.92* 0.66 Lab 05/20/19 0442 CALCIUM 8.5* Lab 05/19/19 1216 05/20/19 0442 NEUTOPHILPCT 77 90 LYMPHOPCT 17 8 MONOPCT 6 2 EOSPCT 0 0 Invalid input(s): BILDIR Assessment/Plan Ms. Rosie Villatoro is a 34 y.o. female who is here for # Recurrent Angioedema - Unclear etiology. No C1 esterase deficiency. Not on any HILARIA inhibitors. She has underlying lupus, which could possibility be an underlying cause. - History of multiple intubations in the past. Given risk for decompensation, she was admitted to MICU for airway monitoring. - ENT consulted, NPL showed patent airway with non-obstructive enlarged left tonsil. - IV Decadron 10 mg Q6H and IV benadryl 50 mg Q6H and Q4H PRN ordered. Patient received IV solumedrol and benadryl in ED. Patient takes prednisone 5 mg daily. 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 Patient was started on Omalizumab monthly since12/17. # Lupus - Follows with outpatient rheumatology (Dr. Powell) - She has been off Cellcept and Plaquenil since 09/16, per patient - Takes prednisone 5 mg daily at home. # Anxiety - Stable. No suicidal of homicidal ideation. - Continue with home Alprazolam PRN. # History of pulmonary embolism - Patient completed anticoagulation for 6 months, she reports that her PCP discontinued medication in 02/16. - Hemodynamically stable without any hypoxia, tachycardia, or tachypnea. # Morbid obesity - BMI 46.7 DVT Prophylaxis: low molecular weight heparin and SCD's while in bed GI Prophylaxis: H2-Faraz Reason: Risk for stress ulcers Functional Status: normal Code Status: Full Code Disposition: Plan transfer to medicine floor. Estimated Discharge Date: TBD The patient was discussed with Sergio Spears MD who agrees with the assessment and plan as noted above. Signature: Omar Rodrigues DO Date/Time: May 20, 2019 11:21 AM Associated attestation - Sergio Spears MD - 05/20/2019 3:12 PM MARTIN saw and evaluated the patient. Discussed with the resident and agree with the residents findings and plans as written, along with any supplemental dictated and/or attending documentation in the patient record by myself. Jabari Cosby MD - 05/20/2019 9:38 AM EST ENT Inpatient Progress Note HD# 1 ENT Team : Consults Interval hx: No acute events. Patient put on O2 overnight for O2 sats in low 90s while asleep. Patient endorses her right submandibular region swelled and resolved again since last ENT exam. Currently she has no symptoms. VS Vitals: 05/20/19 0600 05/20/19 0700 05/20/19 0800 05/20/19 0900 BP: 126/71 102/58 112/88 108/80 Pulse: (!) 55 87 (!) 108 81 Resp: 14 (!) 21 (!) 23 16 Temp: SpO2: 95% 94% 92% 98% I/O: I/O last 3 completed shifts: In: 1303.8 [I.V.:1253.8; IV Piggyback:50] Out: 650 [Urine:650] Physical Examination General: Awake, alert, NAD. Voice strong and clear. No stridor or stertor Head: Normocephalic, atraumatic Eyes: PERRL, EOMI Nose: External nose unremarkable. Anterior nares clear Ears: Bilateral auricles unremarkable Oral Cavity/Oropharynx: tongue scalloped, not enlarged, midline and fully mobile , no masses or lesions. Left tonsil 2+, Right tonsil 1+. The FOM, BOT, and tongue are soft without induration or edema Face: Symmetric. Left sided V3 hypoesthesia, otherwise CN V and VII intact. There is no lip swelling. Neck: Supple, trachea midline, no masses, no lymphadenopathy Resp: Breathing comfortably CV: Warm, well perfused Skin: No rash visualized Recent Labs Lab 05/19/19 1216 05/20/19 0442 WBC 5.7 6.8 HGB 14.0 12.6 HCT 43.0 39.6 PLT 297 244 NEUTOPHILPCT 77 90 Recent Labs Lab 05/19/19 1216 05/20/19 0442 NA 137 134* K 4.0 4.1 CL 100 102 BICARBONATE 27 21* BUN 14 15 CREATININE 0.92* 0.66 GLUCOSE 86 154* Recent Labs Lab 05/19/19 1216 05/20/19 0442 CALCIUM 9.9 8.5* No results for input(s): INR in the last 168 hours. Assessment: Pt is a 34 y.o. female with history of angioedema. She was admitted to MICU for close airway monitoring given her history of decompensation. Clinical exam remains unremarkable with patent airway and no facial or intra- oral swelling. NPL on admission demonstrated a normal, patent airway. Plan: - Patent airway, no acute events - No ENT intervention anticipated - Continue Angioedema medical therapy: ~ Recommend continue IV steroids ~ Combination H1 and H2 antihistamines such as diphenhydramine and ranitidine ~ Epinephrine indicated if airway obstruction or hypotension presents - Please call with any questions - Patient does not need follow-up with ENT Jabari Cosby MD ENT resident PGY-1 Alyssa Bull RN - 05/19/2019 3:58 PM ESTCase Management Screen & Assessment Patient's Name: Rosie Villatoro Date of : 1985 Age: 34 y.o. Gender: female Attending Provider: Sergio Spears MD Admitting Diagnosis: Angioedema, initial encounter [T78.3XXA] Angioedema [T78.3XXA] Admission Date and Time: 05/19/2019 10:38 AM High Risk Criteria - LANDFILL ATTENDANT/Upon Arrival LANDFILL ATTENDANT-Type of Residence: Private residence LANDFILL ATTENDANT- Home Care Services: No Limited Home Supports/Lives Alone?: No Multi trauma/Critical care admit?: Yes Head/Spinal cord injury?: No Self pay/No prescription plan?: No Active with homecare?: No Multiple ED visits?: No Related/Unplanned readmission within 30 days?: No Complex/New medical issues: angioedema Relevant comorbidities: angioedema, lupus, PE urticaria, arthritis, colonoscopy Bedhold?: Yes Psychosocial considerations: , lives with her and their two children 6 and 8 years old CM Screen Outcome Marker Delivery Screen Outcome: Anticipate no Case Management needs for discharge planning Patient/Agent informed of choice and given written list?: Patient/agent declined list Important message (Medicare rights) given?: (na) CM Chart Review Notice of Privacy Practice Signed?: Yes Self Pay: No Prescription Plan?: Yes (comment) Pt. Pharmacy & Phone # : [facility] [address], [place] LANDFILL ATTENDANT: Functional/Environmental Assessment Came from Rehab/SNF, plan to return?: No Brief physical/psychosocial summary: , lives wtih her and their 2 children Bathing: Independent Dressing: Independent Toileting: Independent Medication administration: Independent Transfers: Independent Ambulation: Independent Meal preparation: Independent Number of stairs into home: 5 Number of stairs to bathroom: 12 Number of stairs to bedroom: 12 Case Management Review Date CM re-review date needed?: Yes Case Management Review Date: 05/25/19 Discharge Assessment Patient/family informed of need for discharge planning?: Yes Patient/Agent informed of choice and given written list?: Patient/agent declined list Patient expects to be discharged to:: home Actual discharge location : Home-No Needs Has discharge transport been arranged?: No transport arrangement necessary Home with support services reinstated?: No Living Arrangements: Spouse/significant other Support Systems: Spouse/significant other, regional merchandising manager/health and social care teacher Type of Residence: Private residence Home services arranged?: No Note: pt was introduced to the role of case management and dc planning. Pt admitted form home with angioedema. Pt is , independent and lives with her and their two young kids. No CM needs identified at this time. The plan is to dc home when medically cleared. Family to provide transport upon dc. Continues to follow. Elijah Kaufmanlectronically signed by Alyssa Kaufman RN at 05/19/2019 4:01 PM Martita Britton RN - 05/19/2019 3:27 PM ESTIf wound was present on admission, this documentation was sent to attending provider for cosignature. Alex Graff, Nestor - 05/19/2019 1:12 PM EST Pharmacy Medication History Review Rosie E Irving's medication history was completed in the emergency department by a medication history pest control chemical technician and independently reviewed by myself. Previous Medications ALPRAZOLAM (XANAX) 0.25 MG TABLET Take 0.25 mg by mouth every morning ALPRAZOLAM (XANAX) 0.25 MG TABLET Take 0.125 mg by mouth nightly DIPHENHYDRAMINE HCL 25 MG ORAL CAPSULE (BENADRYL) Take 50 mg by mouth Two Times Daily EPIPEN 2-BERT 0.3 MG/0.3ML SOAJ Inject 0.3 mg into the skin as needed. OMALIZUMAB 150 MG SUBCUTANEOUS SOLUTION RECONSTITUTED (XOLAIR) Inject 300 mg into the skin every28 (twenty-eight) days Last given 05/05/19, next dose due 06/02/19 PREDNISONE 5 MG ORAL TABLET (DELTASONE) Take 5 mg by mouth daily RANITIDINE (ZANTAC) 150 MG TABLET TAKE 1 TABLET TWICE A DAY Medication History Source: [id number] [place] [id number] [address] [facility] [address] [place] [phone] Alex Nunn PharmD Emergency Department Pharmacist Medication history was completed based on information available during this patient encounter, the list above may not be all inclusive. documented in this encounter Plan of Treatment Name Type Priority Associated Diagnoses Order Schedule Basic Metabolic Lab Routine Daily for 5 Days Panel starting 05/20/2019 until 05/24/2019, 3 completed POCT glucose, Point of Care Routine 4X Daily (AC & HS) docked Testing-Docked for 30 Days starting Device 05/20/2019 until 06/19/2019, 4 completed XR Chest Frontal Imaging Routine One Time Imaging Only Routine for 1 Occurrences starting 05/21/2019 until 05/21/2019 Name Type Priority Associated Diagnoses Order Schedule Referral to home Outpatient Referral Routine Angioedema, initial Ordered: health encounter 05/22/2019 Health Maintenance Due Date Last Done Comments MMR Vaccines (1 of 1 - 1985 Standard series) DTaP,Tdap,and Td Vaccines (1 1991 - Tdap) Varicella Vaccines (1 of 2 - 1997 13+ 2-dose series) Cervical Cancer Screening 5 2005 years Pneumococcal Vaccine: 65+ 2049 03/23/2016 Years (2 of 2 - PPSV23) HIV Screening Completed 08/18/2015 Pneumococcal Vaccine: Aged Out 03/23/2016 No longer eligible based Pediatrics (0 to 5 Years) and on patient's age to At-Risk Patients (6 to 64 complete this topic Years) Influenza Vaccine Completed 05/19/2019, 06/11/2018, 05/11/2016 HIB Vaccines Aged Out No longer eligible based on patient's age to complete this topic Hepatitis A Vaccines Aged Out No longer eligible based on patient's age to complete this topic Hepatitis B Vaccines Aged Out No longer eligible based on patient's age to complete this topic IPV Vaccines Aged Out No longer eligible based on patient's age to complete this topic documented as of this encounter Procedures Procedure Name Priority Date/Time Associated Comments Diagnosis POCT GLUCOSE, DOCKED Routine 05/22/2019 12:02 Results for this PM EST procedure are in the results section. POCT GLUCOSE, DOCKED Routine 05/22/2019 8:04 Results for this AM EST procedure are in the results section. BASIC METABOLIC PANEL Routine 05/22/2019 4:26 Results for this AM EST procedure are in the results section. POCT GLUCOSE, DOCKED Routine 05/21/2019 9:15 Results for this PM EST procedure are in the results section. POCT GLUCOSE, DOCKED Routine 05/21/2019 4:43 Results for this PM EST procedure are in the results section. PICC ULTRASOUND - Routine 05/21/2019 1:26 BEDSIDE PROCEDURE PM EST CBC AND DIFFERENTIAL Routine 05/21/2019 5:21 Results for this AM EST procedure are in the results section. BASIC METABOLIC PANEL Routine 05/21/2019 5:21 Results for this AM EST procedure are in the results section. POCT GLUCOSE, DOCKED Routine 05/20/2019 5:26 Results for this PM EST procedure are in the results section. CBC AND DIFFERENTIAL Routine 05/20/2019 4:42 Results for this AM EST procedure are in the results section. BASIC METABOLIC PANEL Routine 05/20/2019 4:42 Results for this AM EST procedure are in the results section. POCT GLUCOSE, DOCKED Routine 05/19/2019 2:52 Results for this PM EST procedure are in the results section. CBC AND DIFFERENTIAL STAT 05/19/2019 12:16 Results for this PM EST procedure are in the results section. BASIC METABOLIC PANEL STAT 05/19/2019 12:16 Results for this PM EST procedure are in the results section. ULTRASOUND - BEDSIDE Routine 05/19/2019 12:12 Results for this PM EST procedure are in the results section. documented in this encounter Results POCT glucose, docked (05/22/2019 12:02 PM EST) POC Glucose 135 70 - 140 mg/dL [facility] POC Specimen Whole Blood Performing Organization Address City/[facility] Phone Number POINT OF CARE TEST [address] [place] [address] [facility] POC [address] [place] [address] POCT glucose, docked (05/22/2019 8:04 AM EST) POC Glucose 117 70 - 140 mg/dL [facility] POC Specimen Whole Blood Performing Organization Address [facility] Phone Number POINT OF CARE TEST [address] [place] [address] [facility] POC [address] [place] [address] Basic Metabolic Panel (05/22/2019 4:26 AM EST) Pathologist [facility] Bicarbonate 24 22 - 29 mmol/L [facility] Chloride 101 98 - 107 mmol/L [facility] Creatinine 0.74 0.50 - 0.90 [facility] mg/dL [facility] Pathology Glucose 138 70 - 140 mg/dL [facility] Potassium 3.8 3.4 - 5.1 mmol/L [facility] Sodium 138 136 - 145 mmol/L [facility] Blood Urea Nitrogen 16 6 - 20 mg/dL [facility] Anion Gap 13 8 - 15 mmol/L [facility] Osmolality, Josiah 289 275 - 300 [facility] mosm/kg [facility] Pathology BUN/Cre Ratio 22 [facility] Calcium 8.6 8.6 - 10.0 mg/dL [facility] GFR Non >90 >60 [facility] Tunisian 2008 CDK-EPI mL/min/1.73m2 [facility]ology GFR >90 >60 [facility] 2009 CKD-EPI mL/min/1.73m2 [facility] Pathology Specimen Plasma Performing Organization Address City/[facility] Phone Number [facility] [address] [place] [address] [phone] [facility] [address] [place] [address] Pathology POCT glucose, docked (05/21/2019 9:15 PM EST) POC Glucose 192 (H) 70 - 140 mg/dL [facility] POC Specimen Whole Blood Performing Organization Address [facility]/Zipcode Phone Number POINT OF CARE TEST [address] [place] [address] [facility] POC [address] [place] [address] POCT glucose, docked (05/21/2019 4:43 PM EST) POC Glucose 113 70 - 140 mg/dL [facility] POC Specimen Whole Blood Performing Organization Address City/[facility]/Zipcode Phone Number POINT OF CARE TEST [address] [place] [address] [facility] POC [address] [place] [address] PICC Ultrasound - Bedside Procedure (05/21/2019 1:26 PM EST) Specimen Performing Organization Address City/[facility]/Zipcode Phone Number [facility] [address] [place] [address] CBC and Differential (05/21/2019 5:21 AM EST) Pathologist [facility] White Blood Cell 11.5 (H) 4 - 10 [facility] 10*3/uL [facility] Red Blood Cell 4.60 4.1 - 5.3 [facility] 10*6/uL [facility] Pathology Hemoglobin 13.8 11.5 - 15.5 [facility] g/dL [facility]ology Hematocrit 41.7 36 - 45 % [facility] Mean Cell Volume 90.7 80 - 96 fL [facility] Mean Cell Hemoglobin 30.0 27 - 33 pg [facility] Mean Cell Hgb Conc 33.0 32.0 - 36.0 [facility] g/dL [facility] Pathology Red Cell Dist Width 13.3 11.5 - 14.5 % [facility] Platelet Count 180 150 - 400 [facility] 10*3/uL [facility] Differential Type Automated Diff [facility] Neutrophil 92 % [facility] Lymphocyte 6 % [facility] Monocyte 2 % [facility] Eosinophil 0 % [facility] Basophil 0 % [facility] Abs Neutrophil 10.64 (H) 1.8 - 7.0 [facility] 10*3/uL [facility] Abs Lymphocyte 0.63 (L) 1.2 - 4.0 [facility] 10*3/uL [facility] Abs Monocyte 0.22 0 - 0.8 [facility] 10*3/uL [facility] Abs Eosinophil 0.03 0 - 0.5 [facility] 10*3/uL [facility] Abs Basophil 0.01 0 - 0.2 [facility] 10*3/uL [facility] Pathology Nucleated Red Blood 0 0 - 0 [facility] Cells /100{WBCs} [facility] Specimen EDTA Whole Blood Performing Organization Address [facility] Phone Number [facility] [address] [place] [address] [facility] [address] [place] [address] Pathology Basic Metabolic Panel (05/21/2019 5:21 AM EST) Bicarbonate 18 (L) 22 - 29 mmol/L [facility] Chloride 107 98 - 107 mmol/L [facility] Creatinine 0.78 0.50 - 0.90 [facility] mg/dL [facility] Pathology Glucose 161 (H) 70 - 140 mg/dL [facility] Potassium 4.4 3.4 - 5.1 [facility] mmol/L [facility] Sodium 139 136 - 145 [facility] mmol/L [facility] Pathology Blood Urea Nitrogen 16 6 - 20 mg/dL [facility] Anion Gap 13 8 - 15 mmol/L [facility] Osmolality, Josiah 292 275 - 300 [facility] mosm/kg [facility] Pathology BUN/Cre Ratio 21 [facility] Calcium 9.0 8.6 - 10.0 [facility] mg/dL [facility] GFR Non >90 >60 [facility] Tunisian 2009 CDK-EPI mL/min/1.73m2 [facility] GFR >90 >60 [facility] 2009 CKD-EPI mL/min/1.73m2 [facility] Pathology Specimen Plasma Performing Organization Address [facility] Phone Number [facility] [address] [place] [address] [phone] [address] Pathology POCT glucose, docked (05/20/2019 5:26 PM EST) POC Glucose 126 70 - 140 mg/dL [facility] POC Specimen Whole Blood Performing Organization Address [facility]/Zipcode Phone Number POINT OF CARE TEST [address] [place] [address] [facility] POC [address] [place] [address] CBC and Differential (05/20/2019 4:42 AM EST) White Blood Cell 6.8 4 - 10 [facility] 10*3/uL [facility] Red Blood Cell 4.27 4.1 - 5.3 [facility] 10*6/uL [facility] Hemoglobin 12.6 11.5 - 15.5 [facility] g/dL [facility] Hematocrit 39.6 36 - 45 % [facility] Mean Cell Volume 92.7 80 - 96 fL [facility] Mean Cell Hemoglobin 29.5 27 - 33 pg [facility] Mean Cell Hgb Conc 31.8 (L) 32.0 - 36.0 [facility] g/dL [facility] Pathology Red Cell Dist Width 12.9 11.5 - 14.5 % [facility] Platelet Count 244 150 - 400 [facility] 10*3/uL [facility] Differential Type Automated Diff [facility] Neutrophil 90 % [facility] Lymphocyte 8 % [facility] Monocyte 2 % [facility] Eosinophil 0 % [facility] Basophil 0 % [facility] Abs Neutrophil 6.14 1.8 - 7.0 [facility] 10*3/uL [facility] Abs Lymphocyte 0.53 (L) 1.2 - 4.0 [facility] 10*3/uL [facility] Abs Monocyte 0.10 0 - 0.8 [facility] 10*3/uL [facility] Abs Eosinophil 0.01 0 - 0.5 [facility] 10*3/uL [facility] Abs Basophil 0.02 0 - 0.2 [facility] 10*3/uL [facility] Nucleated Red Blood 0 0 - 0 [facility] Cells /100{WBCs} [facility] Specimen EDTA Whole Blood Performing Organization Address City/State/Zipcode Phone Number [facility] CLINICAL PATHOLOGY [address] [place] [address] [phone] [facility] [address] [place] [address] Pathology Basic Metabolic Panel (05/20/2019 4:42 AM EST) Bicarbonate 21 (L) 22 - 29 mmol/L [facility] Chloride 102 98 - 107 mmol/L [facility] Creatinine 0.66 0.50 - 0.90 [facility] mg/dL [facility] Pathology Glucose 154 (H) 70 - 140 mg/dL [facility] Potassium 4.1 3.4 - 5.1 [facility] mmol/L [facility] Pathology Sodium 134 (L) 136 - 145 [facility] mmol/L [facility] Pathology Blood Urea Nitrogen 15 6 - 20 mg/dL [facility] Anion Gap 11 8 - 15 mmol/L [facility]ology Osmolality, Josiah 282 275 - 300 [facility] mosm/kg [facility] Pathology BUN/Cre Ratio 23 [facility] Calcium 8.5 (L) 8.6 - 10.0 [facility] mg/dL [facility] Pathology GFR Non >90 >60 [facility] Tunisian 2008 CDK-EPI mL/min/1.73m2 [facility] Pathology GFR >90 >60 [facility] 2009 CKD-EPI mL/min/1.73m2 [facility] Pathology Specimen Plasma Performing Organization Address [facility] [place] [facility] Phone Number [facility] [address] [place] [address] [facility] [address] [place] [address] Pathology POCT glucose, docked (05/19/2019 2:52 PM EST) POC Glucose 102 70 - 140 mg/dL [facility] POC Specimen Whole Blood Performing Organization Address City/[facility] [place] [facility] Phone Number POINT OF CARE TEST [address] [place], [place] [id number] [place] [address] POC [address] [place] [address] Basic Metabolic Panel (05/19/2019 12:16 PM EST) Bicarbonate 27 22 - 29 mmol/L [facility] Pathology Chloride 100 98 - 107 mmol/L [facility] Creatinine 0.92 (H) 0.50 - 0.90 [facility] mg/dL [facility] Pathology Glucose 86 70 - 140 mg/dL [facility] Potassium 4.0 3.4 - 5.1 [facility] mmol/L [facility] Sodium 137 136 - 145 [facility] mmol/L [facility] Blood Urea Nitrogen 14 6 - 20 mg/dL [facility] Anion Gap 10 8 - 15 mmol/L [facility]ology Osmolality, Josiah 284 275 - 300 [facility] mosm/kg [facility] Pathology BUN/Cre Ratio 15 [facility] Pathology Calcium 9.9 8.6 - 10.0 [facility] mg/dL [facility]ology GFR Non 80 >60 [facility] Tunisian 2009 CDK-EPI mL/min/1.73m2 [facility]ology GFR >90 >60 [facility] 2009 CKD-EPI mL/min/1.73m2 [facility] Pathology Specimen Plasma Performing Organization Address City/State/[facility] Phone Number [facility] [address] [place] [address] [phone] [facility] [address] [place] [address] Pathology CBC and Differential (05/19/2019 12:16 PM EST) White Blood Cell 5.7 4 - 10 [facility] 10*3/uL [facility] Pathology Red Blood Cell 4.70 4.1 - 5.3 [facility] 10*6/uL [facility] Pathology Hemoglobin 14.0 11.5 - 15.5 [facility] g/dL [facility]ology Hematocrit 43.0 36 - 45 % [facility]ology Mean Cell Volume 91.5 80 - 96 fL [facility] Mean Cell Hemoglobin 29.7 27 - 33 pg [facility] Mean Cell Hgb Conc 32.5 32.0 - 36.0 [facility] g/dL [facility] Pathology Red Cell Dist Width 13.1 11.5 - 14.5 % [facility] Pathology Platelet Count 297 150 - 400 [facility] 10*3/uL [facility] Pathology Differential Type Automated Diff [facility] Neutrophil 77 % [facility]ology Lymphocyte 17 % [facility] Monocyte 6 % [facility] Eosinophil 0 % [facility]ology Basophil 0 % [facility] Abs Neutrophil 4.34 1.8 - 7.0 [facility] 10*3/uL [facility] Pathology Abs Lymphocyte 0.98 (L) 1.2 - 4.0 [facility] 10*3/uL [facility]ology Abs Monocyte 0.32 0 - 0.8 [facility] 10*3/uL [facility] Pathology Abs Eosinophil 0.03 0 - 0.5 [facility] 10*3/uL [facility]ology Abs Basophil 0.03 0 - 0.2 [facility] 10*3/uL [facility]ology Nucleated Red Blood 0 0 - 0 [facility] Cells /100{WBCs} [facility] Pathology Specimen EDTA Whole Blood Performing Organization Address City/State/Zipcode Phone Number [facility] [address] [place] [address] [phone] [facility] [address] [place] [address] Pathology Bedside Ultrasound performed by ED (05/19/2019 12:12 PM EST) Specimen Narrative Performed At [facility] NON RADIOLOGY IMAGING Exam Date: 05/19/2019 Exam Type: Procedural - peripheral IV Marketing Finance Specialist: Delbert Stallings Attending: Hari Gamino Worksheet: RANDAL_Proc_peripheralIV Exam Information: Exam type: Clinically indicated / billable Indication(s) for Exam: The exam was performed with the following indications: Failed or difficult IV access Location: Right Specific site of peripheral line: Cephalic vein Complications: None Interpretation: Successful U/S-guided peripheral line insertion Physician Approval: I reviewed and approve this exam.: Signed by Hari Gamino on Sunday, May 19, 2019 at 11:31:03 AM Confirmatory study: Images: Procedure Note Interface, Received Via [employer] - 05/19/2019 11:31 AM EST [facility] Exam Date: 05/19/2019 Exam Type: Procedural - peripheral IV Marketing Finance Specialist: Delbert Stallings Attending: Hari Gamino Worksheet: [facility]_Proc_peripheralIV Exam Information: Exam type: Clinically indicated / billable Indication(s) for Exam: The exam was performed with the following indications: Failed or difficult IV access Location: Right Specific site of peripheral line: Cephalic vein Complications: None Interpretation: Successful U/S-guided peripheral line insertion Physician Approval: I reviewed and approve this exam.: Signed by Hari Gamino on Sunday, May 19, 2019 at 11:31:03 AM Confirmatory study: Images: Performing Organization Address City/State/Zipcode Phone Number [facility] NON RADIOLOGY IMAGING [address] [place] [address] documented in this encounter Visit Diagnoses Diagnosis Angioedema, initial encounter Other forms of systemic lupus erythematosus Class 3 severe obesity in adult Anxiety Anxiety state, unspecified documented in this encounter Administered Medications Medication Order MAR Action Action Date Dose Rate Site alprazolam (XANAX) tablet 0.25 mg 0.25 mg, Oral, Daily PRN, Anxiety, Starting Sat05/21/19 at 1600, For 72 hours cetirizine (ZYRTEC) tablet 10 mg Given 05/22/2019 12:57 PM EST 10 mg 10 mg, Oral, Four Times Daily, First dose (after last modification) on Sat05/20/19 at 1200, For 4 days Given 05/22/2019 9:13 AM EST 10 mg Given 05/21/2019 7:28 PM EST 10 mg dexamethasone (DECADRON) injection Given by IV push 05/22/2019 12:56 PM EST 10 mg 10 mg 10 mg, Intravenous, Every 8 hours, First dose (after last modification) on Sat05/21/19 at 2015, For 3 days New 05/22/2019 4:14 AM EST 10 mg New 05/21/2019 7:28 PM EST 10 mg diphenhydrAMINE (BENADRYL) Given by IV push 05/22/2019 12:56 PM EST 50 mg injection 50 mg 50 mg, Intravenous, Every 4 hours PRN, Other, swelling/tingling, Starting Sat05/19/19 at 2141, For 717 hours, MDD of 400 mg, New 05/22/2019 6:41 AM EST 50 mg New 05/22/2019 12:01 AM EST 50 mg diphenhydrAMINE (BENADRYL) Given by IV push 05/22/2019 2:42 PM EST 50 mg injection 50 mg 50 mg, Intravenous, Every 6 hours, First dose (after last modification) on Sat05/21/19 at 2200, For 3 days New 05/22/2019 9:13 AM EST 50 mg New 05/22/2019 4:15 AM EST 50 mg enoxaparin sodium (LOVENOX) injection 30 mg 30 mg, Subcutaneous, Every 12 hours Standard (2 times per day), First dose ( after last modification) on Sat05/20/19 at 2100, For 30 days famotidine (PEPCID) tablet 20 mg Given 05/22/2019 9:13 AM EST 20 mg 20 mg, Oral, 2 Times Daily, First dose on Sat05/20/19 at 2100, For 30 days Given 05/21/2019 7:45 PM EST 20 mg Given 05/21/2019 8:35 AM EST 20 mg heparin lock flush 10 UNIT/ML injection New Bag 05/22/2019 6:41 AM EST 20 Units 20 Units 20 Units, Intravenous, PRN, Line Care, Starting Viridiana 05/21/19 at 1144, For 30 days, Verify blood return before use. Flush with 10 mL of Sodium Chloride 0.9 % before and after infusions or blood sampling followed-by 2 mL Heparin 10 units/mL to lock. Reference Policy C-34H Central Line Policy., New Bag 05/22/2019 4:29 AM EST 20 Units New Bag 05/21/2019 7:46 PM EST 20 Units heparin lock flush 10 UNIT/ML Given by IV push 05/22/2019 12:57 PM EST 20 Units injection 20 Units 20 Units, Intravenous, Every 12 hours, First dose on Viridiana 05/21/19 at 1145, For 30 days, WHEN NOT IN USE - Verify blood return before use. Flush with 10 mL of Sodium Chloride 0.9 % and 2 mL Heparin 10 units/mL. Reference Policy C-34H Central Line Policy., New Bag 05/22/2019 12:03 AM EST 20 Units Given by IV push 05/21/2019 4:02 PM EST 20 Units lidocaine (XYLOCAINE) 1 % injection 5 Given 05/21/2019 2:33 PM EST 5 mLs Right Arm mL 5 mL, Subcutaneous, Once PRN, for PICC insertion, Starting Viridiana 05/21/19 at 1144, For 30 days polyethylene glycol (MIRALAX) packet 17 g 17 g, Oral, Daily Standard, First dose on Sat05/20/19 at 0900, For 30 days, Mix in 8 ounces of water, juice or milk. Avoid use in patients who require thickened liquids due to potential increased risk for aspiration., senna 8.6 MG 2 tablet 2 tablet, Oral, Nightly, First dose on Sat05/19/19 at 2200, For 30 days sodium chloride (preservative free) 0.9 % flush 10 mL 10 mL, Intravenous, PRN, Line Care, Starting Sat05/21/19 at 1144, For 30 days , Verify blood return before use. Flush with 10 mL of Sodium Chloride 0.9 % before and after infusions or blood sampling followed-by 2 mL Heparin 10 units/mL to lock. Reference Policy C-34 Central Line Policy., sodium chloride (preservative Given by IV push 05/22/2019 1:02 PM EST 10 mLs free) 0.9 % flush 10 mL 10 mL, Intravenous, Every 12 hours, First dose on Sat05/21/19 at 1145, For 30 days, WHEN NOT IN USE - Verify blood return before use. Flush with 10 mL of Sodium Chloride 0.9 % and 2 mL Heparin 10 units/mL. Reference Policy [facility]-34 Central Line Policy., Given 05/22/2019 12:03 AM EST 10 mLs Given by IV push 05/21/2019 4:03 PM EST 10 mLs Medication Order MAR Action Action Date Dose Rate Site cetirizine (ZYRTEC) tablet 10 mg Given 05/20/2019 7:39 AM EST 10 mg 10 mg, Oral, Three Times Daily, First dose on Sat05/19/19 at 2000, For 30 days Given 05/19/2019 8:17 PM EST 10 mg dexamethasone (DECADRON) injection 10 mg New 05/21/2019 12:15 PM EST 10 mg 10 mg, Intravenous, Every 6 hours, First dose on Sat05/19/19 at 1700, For 30 days New 05/21/2019 6:44 AM EST 10 mg New 05/21/2019 12:56 AM EST 10 mg diphenhydrAMINE (BENADRYL) Given by IV push 05/19/2019 11:31 AM EST 50 mg injection 50 mg 50 mg, Intravenous, Once, Sat05/19/19 at 1115, For 1 dose diphenhydrAMINE (BENADRYL) injection 50 mg New Bag 05/19/2019 3:58 PM EST 50 mg 50 mg, Intravenous, Every 6 hours PRN, Other, swelling, Starting Sat05/19/19 at 1318, For 30 days, Dilute in 25 mL of NS and run over 15 min , diphenhydrAMINE (BENADRYL) Given by IV push 05/21/2019 4:01 PM EST 50 mg injection 50 mg 50 mg, Intravenous, Every 6 hours, First dose (after last modification) on Sat05/19/19 at 1330, For 3 days New 05/21/2019 10:05 AM EST 50 mg 05/21/2019 4:53 AM EST 50 mg diphenhydrAMINE (BENADRYL) injection 50 mg New 05/19/2019 6:54 PM EST 50 mg 50 mg, Intravenous, Every 4 hours PRN, Other, swelling/tingling, Starting Sat05/19/19 at 1900, For 720 hours, Dilute in 25 mL of NS and run over 15 min , famotidine (PEPCID) in sodium New Bag 05/20/2019 8:59 AM EST 20 mg 200 mL/ hr chloride 0.9 % IVPB 20 mg (premix) 20 mg, Intravenous, Administer over 15 Minutes, 2 Times Daily, First dose on Sat05/19/19 at 2100, For 30 days, Pharmacy to dose, New 05/19/2019 8:17 PM EST 20 mg 200 mL/hr influenza vac split quad Given 05/19/2019 4:43 PM EST 0.5 mLs Left Deltoid (FLUARIX) injection 6 months and older 0.5 mL 0.5 mL, Intramuscular, Give Now, Starting Sat05/19/19 at 1335, For 1 dose lactated ringers infusion 05/20/2019 8:00 AM EST 75 mL/hr 75 mL/hr at 75 mL/hr, Intravenous, Continuous, Starting Sat05/20/19 at 0745, For 24 hours methylPREDNISolone sodium succinate New 05/19/2019 11:31 AM EST 250 mg (SOLU-MEDROL) injection 250 mg 250 mg, Intravenous, Once, Sat05/19/19 at 1115, For 1 dose NaCl infusion 0.9 % Rate/Dose Verify 05/20/2019 7:00 AM EST 75 mL/hr at 75 mL/hr, Intravenous, Continuous, Starting Sat05/19/19 at 1330, For 24 hours Rate/Dose Verify 05/20/2019 6:00 AM EST 75 mL/hr Rate/Dose Verify 05/20/2019 5:00 AM EST 75 mL/hr documented in this encounter
--- OUTSIDE RECORDS SUMMARY | 2019-06-12 12:00 | XMS REPORT | Continuity of Care Document ---
:1985 External Reference #:[id number] Author Name Rene Schultz MD (transmitted by agent of provider Miguel Angel Rubio) Address [address] [place] [id number] Care Team Providers Name Role Phone Tara Song MD - Family Care Team Information Motorcoach Operator [phone] Medicine Nas Wylie MD - Rheumatology Care Team Information Motorcoach Operator [phone] Problems Active Problems Provider Date Epistaxis Mil Campoverde M.D. Onset: 11/04/2014 Social History Type Date Description Comments Sex Unknown Tobacco Use Start: Unknown Never Smoked Cigarettes Tobacco Use Start: Unknown Never Smoked Cigars Tobacco Use Start: Unknown Never Smoked A Pipe Smokeless Tobacco Never Used Smokeless Tobacco ETOH Use consumes 3-4 glasses per week Tobacco Use Start: Unknown Patient has never smoked Smoking Status Reviewed: 05/12/19 Patient has never smoked Allergies, Adverse Reactions, Alerts Description No Known Drug Allergies Medications Active Medications SIG Qnty Indications Ordering Date Provider Prednisone 1 by mouth every 90tabs Nas Wylie, 5mg day MD Tablets Ranitidine HCL 1 tab by mouth once Nas Wylie, 150mg daily MD Tablets Vitamin D3 High 1 by mouth every Unknown Potency day 1000Unit Capsules Benadryl Allergy take 1-2 tablets by Unknown 25mg mouth every night Capsules at bedtime as needed Xolair 2 injections every Unknown 150mg Solution 4 weeks Rec Immunizations Description No Information Available Vital Signs Date Vital Result Comment 05/12/2019 9:47am Height 64 inches 5'4" Weight 220.00 lb Heart Rate 58 /min BP Systolic Sitting 128 mmHg BP Diastolic Sitting 98 mmHg Respiratory Rate 16 /min Pain Level 6 O2 % BldC Oximetry 94 % BMI (Body Mass Index) 37.8 kg/m2 04/23/2019 8:23am Height 64 inches 5'4" Weight 220.00 lb Heart Rate 76 /min BP Systolic Sitting 118 mmHg BP Diastolic Sitting 71 mmHg Respiratory Rate 16 /min Body Temperature 96.9 F Pain Level 6 O2 % BldC Oximetry 96 % BMI (Body Mass Index) 37.8 kg/m2 Results Description No Information Available Procedures Description No Information Available Medical Devices Description No Information Available Encounters Type Date Location Provider Dx Diagnosis Office Visit 04/23/2019 [facility] Rene Schultz, M79.671 Pain in right 8:30a at [place] MD foot Assessments Date Code Description Provider 05/12/2019 M21.6x1 Other acquired deformities of right foot Rene Schultz MD 04/23/2019 M79.671 Pain in right foot Rene Schultz MD Plan of Treatment Future Appointment(s):06/22/2019 9:15 am - Rene Schultz MD at [facility] at [facility]/12/2019 - Rene Schultz, MDM21.6x1 Other acquired deformities of right footFollow up:Follow up: 4-6 weeks Functional Status Description No Information Available Mental Status Description No Information Available Referrals Description No Information Available
--- OUTSIDE RECORDS SUMMARY | 2019-06-12 12:00 | XMS REPORT | Continuity of Care Document ---
:1985 External Reference #:[id number] Author Name JENNY Bro Address [address] [place] [address] Care Team Providers Name Role Phone Swetha Benitez M.D. Care Team Information Division Road Supervisor [phone] Problems Active Problems Provider Date Angioedema Audrey [...] HCL 4 times daily Ashley Shields 10mg M.D. Tablets Ranitidine HCL Unknown 300mg Tablets Benadryl Allergy take 1 tablet at Unknown 25mg night Tablets Medications Administered in Office Medication SIG Qnty Indications Ordering Provider Date Biologic Agent Administration JENNY Rendon 02/26/2019 Injection Biologic Agent Administration JENNY Bro 02/04/2019 Injection Biologic Agent Administration JENNY Bro 01/06/2019 Injection Injection Allergy Injection 01/06/2019 Injection Immunizations CPT Code Status Date Vaccine Lot # [id number] Given Unknown Influenza Vaccine Vital Signs Date Vital Result Comment 05/05/2019 3:23pm Height 63.5 inches 5'3.50" Weight 255.00 lb Weight 115.668 kg Respiratory Rate 16 /min Heart Rate 85 /min O2 % BldC Oximetry 99 % BP Systolic 107 mmHg BP Diastolic 65 mmHg BMI (Body Mass Index) 44.5 kg/m2 04/02/2019 1:17pm Height 63.5 inches 5'3.50" Weight 279.00 lb Weight 126.554 kg Respiratory Rate 20 /min Heart Rate 76 /min O2 % BldC Oximetry 99 % BP Systolic 111 mmHg BP Diastolic 71 mmHg BMI (Body Mass Index) 48.6 kg/m2 Results Description No Information Available Procedures Date Code Description Status 02/26/2019 72244 Biologic Agent Administration Completed 02/04/2019 77758 Biologic Agent Administration Completed 01/06/2019 70088 Biologic Agent Administration Completed 01/06/2019 51561 Injection Completed Medical Devices Description No Information Available Encounters Type Date Location Provider Dx Diagnosis Office Visit 04/02/2019 [facility] Claudette Bruno T78.3xxA Angioneurotic edema, 1:20p JENNY initial encounter Office Visit 12/30/2018 [facility] [place] [facility] Audrey Arteaga T78.3xxA Angioneurotic edema, 1:20p Bhavesh Pastrana initial encounter Assessments Date Code Description Provider 05/05/2019 L50.1 Idiopathic urticaria JENNY Bro 05/05/2019 T78.3xxA Angioneurotic edema, initial encounter JENNY Bro 04/02/2019 T78.3xxA Angioneurotic edema, initial encounter Audrey [...] Audrey Pastrana M.D. 01/06/2019 L50.1 Idiopathic urticaria Malbe Mccann, ANESTHESIOLOGY PHYSICIAN-C 01/06/2019 L50.1 Idiopathic urticaria Allergy Injection 01/06/2019 T78.3xxA Angioneurotic edema, initial encounter Audrey Pastrana M.D. 01/06/2019 T78.3xxA Angioneurotic edema, initial encounter Mable MccannJENNY 12/30/2018 T78.3xxA Angioneurotic edema, initial encounter Audrey Pastrana M.D. Plan of Treatment 05/05/2019 - Mable Razoginette, ELIGIO-CL50.1 Idiopathic betealxhuP29.3xxA Angioneurotic edema, initial encounterRecommendations:Continue all medications as prescribed.Refrain from wearing perfumes/scented colognes while visitingour office. Continue the Xolair every 4 weeks Continue the cetirizine 1 daily Urticaria (Hives) and Angioedema Treatment If the cause of your hives can be identified, you can manage the condition byavoiding that trigger. Treating hives or angioedema is often successful with oral antihistamines that control the itch and recurrence of the rash. If the rash is not controlled with a standard dose ofthe antihistamine, your doctor may suggest increasing the dose for better control of your symptoms. If antihistamines do not control the rash, or if it leaves bruises, then it is important that your doctor rules out other causes which may need alternative therapies. If you are on certain blood pressure medicines (HILARIA inhibitors) and develop angioedema, it is important to consult your doctor. Changing to another blood pressure medicine may help the angioedema go away. Functional Status Description No Information Available Mental Status Description No Information Available Referrals Description No Information Available
--- OUTSIDE RECORDS SUMMARY | 2019-06-12 12:00 | XMS REPORT | Continuity of Care Document ---
:1985 External Reference #:[id number] Author Name Rene Schultz MD (transmitted by agent of provider Miguel Angel Rubio) Address [address] [place] [id number] Care Team Providers Name Role Phone Tara Song MD - Family Care Team Information Senior Oracle Database Administrator [phone] Medicine Nas Wylie MD - Rheumatology Care Team Information Senior Oracle Database Administrator Problems Active Problems Provider Date Epistaxis Mil Campoverde M.D. Onset: 11/04/2014 Social History Type Date Description Comments Sex Unknown Tobacco Use Start: Unknown Never Smoked Cigarettes Tobacco Use Start: Unknown Never Smoked Cigars Tobacco Use Start: Unknown Never Smoked A Pipe Smokeless Tobacco Never Used Smokeless Tobacco ETOH Use consumes 3-4 glasses per week Tobacco Use Start: Unknown Patient has never smoked Allergies, Adverse Reactions, Alerts Description No Known Drug Allergies Medications Active Medications SIG Qnty Indications Ordering Provider Date Prednisone 1 by mouth every 90tabs Nas Wylie MD 5mg Tablets day Ranitidine HCL Nas Wylie MD 150mg Tablets Vitamin D3 High 1 by mouth every Unknown Potency day 1000Unit Capsules Benadryl Allergy take 1-2 tablets Unknown 25mg by mouth every Capsules night at bedtime as needed Xolair q 4 week inj Unknown 150mg Solution Rec Immunizations Description No Information Available Vital Signs Date Vital Result Comment 04/23/2019 8:23am Height 64 inches 5'4" Weight 220.00 lb Heart Rate 76 /min BP Systolic Sitting 118 mmHg BP Diastolic Sitting 71 mmHg Respiratory Rate 16 /min Body Temperature 96.9 F Pain Level 6 O2 % BldC Oximetry 96 % BMI (Body Mass Index) 37.8 kg/m2 04/26/2016 9:45am Height 64 inches 5'4" Heart Rate 84 /min BP Systolic Sitting 112 mmHg BP Diastolic Sitting 80 mmHg Body Temperature 98.5 F Results Description No Information Available Procedures Description No Information Available Medical Devices Description No Information Available Encounters Description No Information Available Assessments Date Code Description Provider 04/23/2019 M79.671 Pain in right foot Rene Schultz MD Plan of Treatment 04/23/2019 - Rene Schultz, MDM79.671 Pain in right footNew Xrays:MRI Lower Extremity Right W/O, Ordered: 04/23/19Comments:protected weight bearing , use crutches , ice/elevateFollow up:Follow up: after testing is completed Functional Status Description No Information Available Mental Status Description No Information Available Referrals Description No Information Available
[2019-06-12 12:15] VITALS: BP 132/73
--- NOTE | 2019-06-12 12:48 | UC ---
Upper Extremity HPI - HPI Summary HPI Summary: 34 yo with hx of anaphylaxis of unexplained etiology, recent in patient treatment with IV meds on 05/22/19. Over the past 2 days, she has increasing erythema and tenderness of the site of the IV on her left forearm. Hx of pulmonary embolus earlier this year, which was without symptoms and was found on chest CT which she had as part of the evaluation of her anaphylaxis. - History of Current Complaint Chief Complaint: UCUpperExtremity Stated Complaint: LT FOREARM PAIN POSSBLOOD CLOT Time Seen by Provider: 06/12/19 12:47 Hx Obtained From: Patient Hx Last Menstrual Period: 06/08/19 Onset/Duration: Gradual Onset, Lasting Days - onset of erythema yesterday Severity Initially: Mild Severity Currently: Moderate Pain Intensity: 4 Location Of Pain: Is Discrete @ - left forearm Character: Dull Aggravating Factor(s): Movement Alleviating Factor(s): Nothing Associated Signs And Symptoms: Positive: Swelling, Redness, Bruising Related History: Dominant Hand Right - Risk Factors Non-Orthopedic Risk Factor: Negative DVT Risk Factors: Negative Septic Arthritis Risk Factor: Negative Compartment Syndrome Risk Factors: Pain - Allergies/Home Medications Allergies/Adverse Reactions: Allergies Allergy/AdvReac Type Severity Reaction Status Date / Time No Known Allergies Allergy Verified 06/12/19 12:11 Home Medications: Home Medications ALPRAZolam TAB* [Xanax TAB*] 0.5 mg PO TID PRN 06/12/19 [History Confirmed 06/12] Famotidine TAB* [Pepcid 20 MG TAB*] 20 mg PO BID 06/12/19 [History Confirmed ] diPHENhydraMINE IV* [Benadryl 50 MG/ML IV] 50 mg .SEE ORDER Q4HR 06/12/19 [ History Confirmed 06/12/19] PMH/Surg Hx/FS Hx/Imm Hx Previously Healthy: Yes - Surgical History Surgical History: Yes Surgery Procedure, Year, and Place: C-Sections, 2011 2012. RIGHT BREAST DUCTAL REMOVEMENT 2013-[facility]. PICC in right upper arm-05/2019 - Family History Known Family History: Positive: Cardiac Disease - father, Other - renal cell cancer--mother Negative: Blood Disorder - Social History Occupation: Employed Full-time Alcohol Use: Occasionally Substance Use Type: None Smoking Status (MU): Never Smoked Tobacco - Immunization History Most Recent Influenza Vaccination: Not the season Vaccination Up to Date: Yes Review of Systems All Other Systems Reviewed And Are Negative: Yes Constitutional: Positive: Negative Skin: Positive: Bruising - left forearm Eyes: Positive: Negative ENT: Positive: Negative Respiratory: Positive: Negative Cardiovascular: Positive: Negative Gastrointestinal: Positive: Negative Genitourinary: Positive: Negative Motor: Positive: Negative Neurovascular: Positive: Other - area of warmth and erythema left medial forearm approx 5 x 2 mm, with ecchymosis distally Musculoskeletal: Positive: Negative Neurological: Positive: Negative Psychological: Positive: Negative Is Patient Immunocompromised?: No Physical Exam Triage Information Reviewed: Yes Appearance: Well-Appearing, No Pain Distress, Obese Vital Signs: Initial Vital Signs Temp 97.3 F 06/12/19 12:07 Pulse 104 06/12/19 12:07 Resp 18 06/12/19 12:07 BP 132/73 06/12/19 12:07 Pulse Ox 100 06/12/19 12:07 Vital Signs Reviewed: Yes ENT: Positive: Pharynx normal Neck: Positive: Supple, Nontender, No Lymphadenopathy Respiratory: Positive: Lungs clear, Normal breath sounds Cardiovascular: Positive: RRR, No Murmur Musculoskeletal Exam: Normal Neurological Exam: Normal Psychological Exam: Normal Skin Exam: Other - area of warmth and erythema with mild swelling 5 x 2 cm area medial forearm, volar surface. Patchy ecchymosis distal to this area. Diagnostics - Radiology No standard instances Radiology Interpretation Completed By: Radiologist - Patient Name: DEJA CHAN Medical Record#: [id number] Ordering Physician: Simran Corona MD Acct.#: [id number] : Age: 34 Sex: F Location: [facility] Exam Date: 06/12/19 1258 ADM Status: REG ER Order Information: VL UPPER EXT VEIN DOPPLER LEFT Accession Number: [id number] CPT: 84653 HISTORY: progressive swelling, erythema of the left forearm COMPARISONS: None relevant TECHNIQUE: Multiple transverse and longitudinal ultrasound images were obtained of the left upper extremity from the level of the internal jugular vein inferiorly through to the infra-cubital veins using grayscale, color Doppler, and spectral Doppler imaging with and without compression and with augmentation. Comparison images were obtained of the contralateral common femoral vein. FINDINGS: VEINS: There is a thrombosed superficial subcutaneous vein in the proximal forearm the area of clinical abnormality. This may be a portion of the cephalic vein. The remainder of the venous system of the left upper extremity is compressible throughout its course , with normal flow on color Doppler imaging and normal response to augmentation on spectral Doppler imaging. SOFT TISSUES: Unremarkable. OTHER FINDINGS: None. IMPRESSION: LEFT UPPER EXTREMITY SUPERFICIAL THROMBOPHLEBITIS. <Electronically signed by Yonas Wagoner MD in OV> 06/12/191424 Dictated By: Yonas Wagoner MD Dictated Date/Time: 06/12/191423 Transcribed Date/Time: 06/12/191423 Copy to: CC:Swetha Benitez MD; Simran Corona MD Imaging - [facility] Imaging - [facility] [address] [place] [address] ph ) ph ([phone]) ph ([phone]) This report is only to be considered final once signed by the Provider(s) as displayed in the "< Electronically Signed by >" field (s). Absence of a signature indicates the report is in a draft status and still needs to be finalized. In the event this document was created by someone other than the signing Provider, the individual initiating the document will be listed in the "Entered by:" or "Dictated by:" romo. 1 of 2 Upper Extremity Course/Dx - Course Course Of Treatment: treatment of superficial thrombophlebitis with warm compresses, cover with antibiotics. - Differential Dx/Diagnosis Differential Diagnosis/HQI/PQRI: Other - superficial thrombophlebitis. Provider Diagnosis: Superficial thrombophlebitis of left upper extremity Discharge ED - Sign-Out/Discharge Documenting (check all that apply): Patient Departure All imaging exams completed and their final reports reviewed: Yes - Discharge Plan Condition: Stable Disposition: HOME Prescriptions: DOXYcycline CAP(*) [DOXYcycline 100MG CAP(*)] 100 mg PO BID #14 cap Patient Education Materials: Superficial Thrombophlebitis (ED) Referrals: Swetha Benitez MD [Primary Care Provider] - Additional Instructions: Take doxycycline for prevention of infection. Use hot compresses to the area and monitor for increasing pain and redness. If you have increasing pain or redness, please go to the emergency room for assessment. - Billing Disposition and Condition Condition: STABLE Disposition: Home
== END 2019-06-12 14:48 | disposition home or self-care (01) ==
LOC: UCCORT 11:54
DX: I80.8 Phlebitis and thrombophlebitis of other sites (principal); Z86.711 Personal history of pulmonary embolism
CPT/HCPCS: 99212; G0463